=== PATIENT | female | born 1940 | race Caucasian/White ===

== ENCOUNTER 2024-10-21 15:30 | Inpatient (IN) ==
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
--- OUTSIDE RECORDS SUMMARY | 2024-10-21 15:35 | External Medical Summary | Summary of Care ---
Author Name Unknown Organization [facility] Address [address] [place] [address] Phone [phone] Care Team Providers Care Naval Aircrewman Operator Name Role Phone Adeola Kong DO Primary Care Provider [phone] Reason for Referral * Precert (Within 10 days (routine)) - Closed Specialty Diagnoses / Procedures Referred By Contac t Referred To Contact Radiology Diagnoses Multiple lung nodules on CT Procedures CT CHEST WO CONTRAST Carol Martinez CRNP Phone: tel: fax: Referral ID Status Reason Start Date Expiration Date V isits Requested Visits Authorized [id number] Closed Precert 04/05/2023 06/05/2023 999 999 Reason for Visit * Reason Onset Date Comments STAIR Lung Nodule 01/26/2023 Lung Nodule Pr ogram Encounter Details Date Type Department Care Team (Late st Contact Info) Description 01/26/2023 Telephone STAIR LUNG NODULE [address] [place] [address] Program, Stair [address] [place] [address] STAIR Lung Nodule (Lung Nodule Program) Allergies No known active allergiesdocumented as of this encounter (statuses as of 09/14/2024) Medications PreserVision AREDS 2+Multi Vit Oral Capsule Take by mouth . Active Lysine 500 MG Oral Capsule Take by mouth . Active Vitamin B-12 250 MCG Oral Tablet (Cyanocobalami n) Take 1 Tablet by mouth in the morning. Active Calcium 1000 + D 1000-20 MG-MCG Oral Tablet (Calcium Carb-Cholecalc iferol) Take by mouth . Active Pantoprazole Sodium 40 MG Oral Packet (Protonix)Collette cations:Gastro esophageal reflux disease without esophagitis Administer 40 mg into feeding tube in the morning. 90 Each 3 07/28/19 23 024 Discontinued Simvastatin 40 MG Oral Tablet (Zocor)Indicat ions:Dyslipide vickie Take 1 Tablet by mouth every evening. 90 Tablet 3 07/28/19 23 024 Discontinued(Re fill) documented as of this encounter (statuses as of 09/14/2024) Active Problems Problem Noted Date Diagnosed Date [...] as of this encounter (statuses as of 09/14/2024) Immunizations Name Administration Dates Next Due COVID-19 mRNA, LNP-s, No Pre serve, 2-Dose Series (EarlySense) 09/25/2021,04/07/2021,08/17/2020,2020 COVID-19, MRNA-LNP, PF, 50 M CG/0.5 mL, 12 YRS AND ABOVE, IM (MODERNA-Spikevax) 04/07/2023 Covid-19, Mrna, Lnp-s, Pf, B ivalent, 30 Mcg, IM, 12 yrs and above (EarlySense) 03/04/2022 Pneumococcal Conjugate Vacci ne, 20-valent ([id number]) 07/24/2024 Pneumococcal Conjugate Vacci ne, 7 Valent [...] Packs/Day Years Used Date Smoking Tobacco: Never Smokeless Tobacco: Never Alcohol Use Standard Drinks/Week [...] 01/29/2023 Does the household have a re lar source of income? (Household - for ages [...] Start Date Job End Date retired from [employer] Not on file Not on file Not on olesya e documented as of this encounter Miscellaneous Notes * Telephone Encounter - Deb Veloz LPN - 09/14/2024 2:02 PM EDT Patient disenrolled from STAIR Program for Pulmonary Nodule - banner removed * Telephone Encounter - Cielo Crystal LPN - 02/11/2023 7:45 AM EDT Cresencio Black DO - for your review. An important pulmonary nodule finding was noted. The follow-up Care Plan is [address] Chest scan. The STAIR Team will manage this lung nodule and take care of any ordering/scheduling. Lung Nodule Referral Triaging - Communication to Patient Patient letter sent through [facility] or mail. Patient will be contacted again closer to follow-up date to schedule CT scan. 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 Non-Pulmonary Nodule Incidental Finding: hiatal hernia 3. Patient contacted to review recommendations and next steps: No, letter to be sent by STAIR Coordinator (CT in >=12 months, no follow-up needed, or patient sent back to [facility]) 4. Message forwarded to STAIR Pool. Time spent: 20 minutes CRUZ Larsen (System to Track Abnormalities of Importance Reliably)™ * Telephone Encounter - Cielo Crystal LPN - 01/26/2023 8:54 AM EDT Lung Nodule Referral Triaging - Clinical Summary Name: Arlene Brock Age: [age] year old Patient Identified by: Specialty Referral Questions: 1. Have you ever smoked Cigarettes? no - never smoked 2. Have you ever had Cancer? Yes, Site: Skin 3. Do you have any first degree relatives (parent, sibling or child) who have or had lung cancer? No 4. Have you ever had any Chest X-Rays done outside of [facility] in the past 5 years? Yes; Where: [facility]; When: 5. Have you ever had any CAT scans of your chest, abdomen or spine done outside of [facility] in thepast 5 years? Yes; Where: [facility]; When: 6. New patient to this specialty Next Steps: Assembly: CXR/Chest CT/Abdomen CT/Spine CT outside of [facility]: outside CXR/CT scan disk requested Ordering: Recent CT Chest (within 12 months): Ordered Message will be forwarded to CLASSIFIED AD CLERK Nodule Pool when necessary imaging is available for review. Cielo Crystal LPN Coordinator STAIR (System to Track Abnormalities of Importance Reliably)™ Patient managed in STAIR Program for Pulmonary Nodule - banner added * Telephone Encounter - Deb Veloz LPN - 01/26/2023 8:40 AM EDT Left message for return call to enroll in STAIR documented in this encounter Plan of Treatment Upcoming Encounters Date Type Department Care Team (Late st Contact Info) Description 01/22/2025 9:40 AM EDT Office Visit [facility] [address] [place] [address] Adeola Kong, [address] [place] [address] 02/15/2025 8:15 AM EDT Office Visit Dermatology [facility] [address] [facility] [place] [address] Kamlesh Myers MD [address] [facility] [place] [address] Health Maintenance Due Date Last Done Comments [...] on patient's age to complete this topic Meningitis B Vaccine (Bexsero/Trumemba) Aged Out No longer eligible based on patient's age to complete this topic Zoster Vaccines Discontinued documented as of this encounter Medical Devices Not on filedocumented as of this encounter Results * CT CHEST WO CONTRAST (04/26/2023 10:35 AM EST) Anatomical Region Laterality Modality Chest, Body, Cardio Computed Jakub ography 04/27/2023 5:57 PM EST Impressions 04/27/2023 5:54 PM EST IMPRESSION Stable size and burden of sub 6 mm solid appearing nodules. Recommend a follow-up in 1 year to document stability. Narrative 04/27/2023 5:54 PM EST EXAM EXAM: CT CHEST WO CONTRAST DATE and TIME: 04/26/2023 10:35 am HISTORY CLINICAL INFORMATION: STAIR - lung nodules TECHNIQUE Oral Contrast: Oral contrast was not administered. IV Contrast: No IV contrast used COMPARISON CT chest 01/21/2023 FINDINGS LUNGS/PLEURA: The central tracheobronchial tree is patent. There are unchanged sub 6 mm solid appearing nodules with customer counter representative 6 mm solid appearing left lower lobe nodule axial 137 of 290. Overall burden of nodules unchanged. There are scattered ground-glass opacities. There is no sizable effusion or pneumothorax. CARDIOVASCULAR, MEDIASTINUM, THYROID: Normal size heart. Coronary artery calcifications. Unremarkable thyroid gland. Unremarkable esophagus. Small hiatal hernia. LYMPH NODES: Unremarkable SKELETON,CHEST WALL: Multilevel degenerative changes of the spine. Exaggerated kyphosis. Multilevel Schmorl's nodes. UPPER ABDOMEN: Collapsed stomach. Left hepatic lobe cyst. No acute abnormality in the upper abdomen. Limited evaluation of the pancreas due to incomplete field of view. Procedure Note Errol Andujar DO - 04/27/2023 EXAM EXAM: CT CHEST WO CONTRAST DATE and TIME: 04/26/2023 10:35 am HISTORY CLINICAL INFORMATION: STAIR - lung nodules TECHNIQUE Oral Contrast: Oral contrast was not administered. IV Contrast: No IV contrast used COMPARISON CT chest 01/21/2023 FINDINGS LUNGS/PLEURA: The central tracheobronchial tree is patent. There areunchanged sub 6 mm solid appearing nodules with customer counter representative 6 mm solidappearing left lower lobe nodule axial 137 of 290. Overall burden ofnodules unchanged. There are scattered ground-glass opacities. There isno sizable effusion or pneumothorax. CARDIOVASCULAR, MEDIASTINUM, THYROID: Normal size heart. Coronary arterycalcifications. Unremarkable thyroid gland. Unremarkable esophagus.Small hiatal hernia. LYMPH NODES: Unremarkable SKELETON,CHEST WALL: Multilevel degenerative changes of the spine.Exaggerated kyphosis. Multilevel Schmorl's nodes. UPPER ABDOMEN: Collapsed stomach. Left hepatic lobe cyst. No acuteabnormality in the upper abdomen. Limited evaluation of the pancreas dueto incomplete field of view. IMPRESSION IMPRESSION Stable size and burden of sub 6 mm solid appearing nodules. Recommend afollow-up in 1 year to document stability. us Carol Martinez PATCHER WOOD WELDER RAD CT Final Result documented in this encounter Visit Diagnoses Diagnosis Multiple lung nodules on CT- Primary Multiple lung nodules on CT documented in this encounter Care Teams Naval Aircrewman Operator Relationship Specialty Start Date End Date Adeola Kong DO [address] [facility] [place] [address] PCP - General Family Medicine 05/04/23 documented as of this encounter
--- OUTSIDE RECORDS SUMMARY | 2024-10-21 15:35 | External Medical Summary | Summary of Care ---
Author Name Unknown Organization [facility] Address [address] [facility] [place] [address] Phone [phone] Care Team Providers Care Energy Auditor Name Role Phone Adeola Kong DO Primary Care Provider [phone] Reason for Visit * Reason Onset Date Comments Test Results Biopsy 04/10/2024 Encounter Details Date Type Department Care Team (Late st Contact Info) Description 04/10/2024 Telephone Dermatology [facility] [place] [address] [place] [address] Miguelina España PA-C [address] [place] [address] Test Results Biopsy Allergies No known active allergiesdocumented as of this encounter (statuses as of 07/10/2024) Medications PreserVision AREDS 2+Multi Vit Oral Capsule Take by mouth . Acti ve Lysine 500 MG Oral Capsule Take by mouth . A ctive Vitamin B-12 250 MCG Oral Tablet (Cyanocobalamin ) Take 1 Tablet by mouth in the morning. Active Calcium 1000 + D 1000-20 MG-MCG Oral Tablet (Calcium Carb-Cholecalci ferol) Take by mouth . Acti ve Triamcinolone Acetonide 0.1 % External Cream (Aristocort)Ind ications:Prurit us Apply to itchy skin on back, abdomen, arms, and legs once twice daily for 2 weeks. Apply to forehead once daily for 10 days 450 g 1 4 Active Simvastatin 40 MG Oral Tablet (Zocor)Indicati ons:Dyslipidemi a Take 1 Tablet by mouth every evening. 90 Tablet 3 4 Active Pantoprazole Sodium 40 MG Oral Tablet Delayed Release (Protonix) Take 1 Tablet by mouth in the morning. 90 Tablet 3 4 Active Gabapentin 100 MG Oral Capsule (Neurontin)Collette cations:Neuropa thy of right foot Take 1 Capsule by mouth in the morning and 1 Capsule at noon and 1 Capsule before bedtime. 270 Capsule 3 4 Active predniSONE 20 MG Oral Tablet (Deltasone)Collette cations:Inflamm ation of sacroiliac joint (HCC),Arthritis of low back Take 3 tabs for 3 days, 2 tabs for 3 days, 1 tab for 3 days, 1/2 tab for 3 days 20 Tablet 4 Active Additional Information Patient not taking.Reported on 03/30/2024 documented as of this encounter (statuses as of 07/10/2024) Active Problems Problem Noted Date Diagnosed Date [...] as of this encounter (statuses as of 07/10/2024) Immunizations Name Administration Dates Next Due COVID-19 mRNA, LNP-s, No Pre serve, 2-Dose Series (Fastmobile) 09/25/2021,04/07/2021,08/17/2020,2020 Covid-19, Mrna, Lnp-s, Pf, B ivalent, 30 Mcg, IM, 12 yrs and above (Fastmobile) 03/04/2022 RSV Vac., Recomb, Adjuvant, PF,0.5 Ml (Arexvy) 05/06/2023 Seasonal Influenza Virus Vac cine, Unspecified Formulation 03/04/2022 Seasonal Influenza, PF, 6 M & above, IM , (FluLaval or Fluzone) 03/04/2022 Seasonal Influenza, Quadriva lent Hd (Fluzone Hd) 04/07/2023 TDAP (age 10 and older)(Boostrix) 05/06/2023 documented [...] y our heating, water, or electric bill? (Adult - for ages 18 years and over) Not on file 02/11/2024 Is your family able to pay t he heat, water, or electric bill? (Household - for ages 0-17 years) Not on file 02/11/2024 Does your family have access to good internet? (Household - for ages 0-17 years) Not on file 02/11/2024 Employment Status Answer Date Recorded Are you unemployed or without regular income? No 01/29/2023 Does the household have a re gular source of income? (Household - for ages 0-17 years) Not on file 01/29/2023 Social Connections Answer Date Recorded How often do you feel lonely or isolated from those around you? (Adult - for ages 18 years and over) Not on file 02/11/2024 Financial Resource Strain Answer Date R ecorded [...] Start Date Job End Date retired from [employer] Not on file Not on file Not on olesya e documented as of this encounter Miscellaneous Notes * Telephone Encounter - Mireille Torres LPN - 04/10/2024 10:45 AM EDT Patient aware of results. Says it's still a little tender but using the vaseline and bandage. Will call with any concerns. * Telephone Encounter - Stefani Ryan LPN - 04/10/2024 7:59 AM EDT LVM for Arlene to call our office back. If she calls back please relay the message below. * Telephone Encounter - Fidelina Jones CMA - 04/10/2024 7:18 AM EDT Images from the original note were not included. 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 We do not need to do anything more right now. documented in this encounter Plan of Treatment Upcoming Encounters Date Type Department Care Team (Late st Contact Info) Description 07/24/2024 11:40 AM EST Office Visit [facility] [address] [place] [address] Beth Wells CRNP [address] [place] [id number] 01/04/2025 9:15 AM EDT Office Visit Dermatology [facility] [address] [facility] [place] [address] Kamlesh Myers MD [address] [facility] [place] [address] Health Maintenance Due Date Last Done Comments Pneumococcal Vaccine: 50+ Years (1 of 1 - PCV) 1988 Zoster Vaccines (1 of 2) 1988 Adult Wellness Visit 2004 Depression Monitoring 04/23/2023 04/23/2022 COVID-19 Vaccine ( season) 2024 04/07/2023, 03/04/2022, 09/25/2021, Additional history exists Influenza Vaccine (FLU shot) (#1) 2024 04/07/2023, 03/04/2022, 03/04/2022, Additional history exists DXA Scan 06/02/2032 06/02/2022, 06/02/2022 DTap/Tdap Vaccines (2 - Td or Tdap) 05/06/2033 05/06/2023 HPV (Gardasil) Vaccine Aged Out No lo nger eligible based on patient's age to complete this topic Hepatitis B Vaccine Aged Out No longe r eligible based on patient's age to complete this topic MENINGOCOCCAL (MENACTRA/MENVEO) Aged Out No longer eligible based on patient's age to complete this topic documented as of this encounter Medical Devices Not on filedocumented as of this encounter Care Teams Energy Auditor Relationship Specialty Start Date End Date Adeola Kong DO [address] [place] [address] PCP - General Family Medicine 05/04/23 documented as of this encounter
--- OUTSIDE RECORDS SUMMARY | 2024-10-21 15:35 | External Medical Summary | Summary of Care ---
Author Name Unknown Organization [facility] Address [address] [facility] [place] [address] Phone [phone] Care Team Providers Care Proposal Rep Name Role Phone Adeola Kong DO Primary Care Provider [phone] Reason for Visit * Reason Onset Date Comments Appointment Canceled 07/25/2024 Encounter Details Date Type Department Care Team (Late st Contact Info) Description 07/25/2024 Telephone Podiatry [facility] [address] [place] [address] Stacy Winn, DPM [address] [place] [address] Appointment Canceled Allergies No known active allergiesdocumented as of this encounter (statuses as of 07/25/2024) Medications PreserVision AREDS 2+Multi Vit Oral Capsule Take by mouth . Active Lysine 500 MG Oral Capsule Take by mouth . Active Vitamin B-12 250 MCG Oral Tablet (Cyanocobalamin ) Take 1 Tablet by mouth in the morning. Active Calcium 1000 + D 1000-20 MG-MCG Oral Tablet (Calcium Carb-Cholecalci ferol) Take by mouth . Active Triamcinolone Acetonide 0.1 % External Cream (Aristocort)Ind ications:Prurit us Apply to itchy skin on back, abdomen, arms, and legs once twice daily for 2 weeks. Apply to forehead once daily for 10 days 450 g 1 07/02/2023 Active Simvastatin 40 MG Oral Tablet (Zocor)Indicati ons:Dyslipidemi a Take 1 Tablet by mouth every evening. 90 Tablet 3 10/08/2023 Active Pantoprazole Sodium 40 MG Oral Tablet Delayed Release (Protonix) Take 1 Tablet by mouth in the morning. 90 Tablet 3 11/11/2023 Active Gabapentin 100 MG Oral Capsule (Neurontin)Collette cations:Neuropa thy of right foot Take 1 Capsule by mouth at bedtime as needed (neuropathy in feet). 270 Capsule 3 07/24/2024 Active documented as of this encounter (statuses as [...] mRNA, LNP-s, No Pre serve, 2-Dose Series ([email or web address]) 09/25/2021,04/07/2021,08/17/2020,2020 COVID-19, MRNA-LNP, PF, 50 M CG/0.5 mL, 12 YRS AND ABOVE, IM (MODERNA-Spikevax) 04/07/2023 Covid-19, Mrna, Lnp-s, Pf, B ivalent, 30 Mcg, IM, 12 yrs and above (Pfizer) 03/04/2022 Pneumococcal Conjugate Vacci ne, 20-valent ([id number]) 07/24/2024 Pneumococcal Conjugate Vacci ne, 7 Valent [...] Start Date Job End Date retired from [employer] Not on file Not on file Not on olesya e documented as of this encounter Miscellaneous Notes * Telephone Encounter - Kendra Davidson OSA - 07/25/2024 11:17 AM EST Per message below - attempted to reach patient GERARDO LVM for patient that 07/28 appt cancelled Sent list of routine nail care providers to patients address in file * Telephone Encounter - Kendra Davidson OSA - 07/25/2024 11:16 AM EST ----- Message from Stacy Winn DPM sent at 07/24/2024 11:56 AM EST ----- New patient got scheduled for this Wednesday at 3:20. Reason is corn. Could we provide list? Based on referral this would likely not be covered anyway but is considered routine. Thanks! documented in this encounter Plan of Treatment Upcoming Encounters Date Type Department Care Team (Late st Contact Info) Description 01/22/2025 9:40 AM EDT Office Visit Family Practice [facility] [address] [place] [address] Adeola Kong DO [address] [place] [address] 02/15/2025 8:15 AM EDT Office Visit Dermatology [facility] [address] [facility] [place] [address] Kamlesh Myers MD [address] [facility] [place] [address] Health Maintenance Due Date Last Done Comments [...] filedocumented as of this encounter Care Teams Proposal Rep Relationship Specialty Start Date End Date Adeola Kong DO [address] [place] [address] PCP - General Family Medicine 05/04/23 documented as of this encounter
--- OUTSIDE RECORDS SUMMARY | 2024-10-21 15:35 | External Medical Summary | Summary of Care ---
Author Name Unknown Organization [facility] Address [address] [facility] [place] [address] Phone [phone] Care Team Providers Care Top Inventory Control Executive Name Role Phone Adeola Kong DO Primary Care Provider [phone] Reason for Visit * Reason Onset Date Comments Advice 03/17/2024 Encounter Details Date Type Department Care Team (Late st Contact Info) Description 03/17/2024 Telephone Family Practice [facility] [address] [place] [address] Adeola Kong DO [address] [place] [address] Advice Allergies No known active allergiesdocumented as of this encounter (statuses as of 06/16/2024) Medications PreserVision AREDS 2+Multi Vit Oral Capsule [...] as of this encounter (statuses as of 06/16/2024) Active Problems Problem Noted Date Diagnosed Date [...] as of this encounter (statuses as of 06/16/2024) Immunizations Name Administration Dates Next Due COVID-19 mRNA, LNP-s, No Pre serve, 2-Dose Series (Social Reality) 09/25/2021,04/07/2021,08/17/2020,2020 Covid-19, Mrna, Lnp-s, Pf, B ivalent, 30 Mcg, IM, 12 yrs and above (Social Reality) 03/04/2022 RSV Vac., Recomb, Adjuvant, PF,0.5 Ml [...] Start Date Job End Date retired from [employer] Not on file Not on file Not on olesya e documented as of this encounter Miscellaneous Notes * Telephone Encounter - Jack Zuñiga OSA - 03/17/2024 10:48 AM EDT Patient has a growth under her left arm and would like to know if she needs to be seen by PCP. Please follow up and call her back. Thank you. documented in this encounter Plan of Treatment Upcoming Encounters Date Type Department Care Team (Late st Contact Info) Description 07/24/2024 11:40 AM EST Office Visit Family Practice [facility] [address] [place] [address] Adeola Kong DO [address] [place] [address] 01/04/2025 9:15 AM EDT Office Visit Dermatology [facility] [place] [address] [place] [address] Kamlesh Myers MD [address] [place] [address] Health Maintenance Due Date Last Done Comments [...] filedocumented as of this encounter Care Teams Top Inventory Control Executive Relationship Specialty Start Date End Date Adeola Kong DO [address] [place] [address] PCP - General Family Medicine 05/04/23 documented as of this encounter
--- OUTSIDE RECORDS SUMMARY | 2024-10-21 15:35 | External Medical Summary | Summary of Care ---
Author Name Unknown Organization [facility] Address [address] [facility] [place] [address] Phone [phone] Care Team Providers Care Critical Power Technician Name Role Phone Clyde Garces DO Primary Care Provider [phone] Reason for Visit * Reason Comments eRx-Medication Refill Encounter Details Date Type Department Care Team (Late st Contact Info) Description 10/04/2024 [address]ill [address] [facility] [address] [place] [address] Clyde Garces DO [address] [place] [address] Dyslipidemia Allergies No known active allergiesdocumented as of this encounter (statuses as of 10/05/2024) Medications PreserVision AREDS 2+Multi Vit Oral Capsule [...] 10 days 450 g 1 4 Active Pantoprazole Sodium 40 MG Oral Tablet Delayed Release (Protonix) Take 1 Tablet by mouth in the morning. 90 Tablet 3 4 Active Gabapentin 100 MG Oral Capsule (Neurontin)Ind ications:Neuro vincent of right foot Take 1 Capsule by mouth at bedtime as needed (neuropathy in feet). 270 Capsule 3 5 Active Simvastatin 40 MG Oral Tablet (Zocor)Indicat ions:Dyslipide vickie TAKE 1 TABLET BY MOUTH ONCE DAILY IN THE EVENING 90 Tablet 3 5 Active Simvastatin 40 MG Oral Tablet (Zocor)Indicat ions:Dyslipide vickie Take 1 Tablet by mouth every evening. 90 Tablet 3 4 025 Discontinued documented as of this encounter (statuses as of 10/05/2024) Active Problems Problem Noted Date Diagnosed Date [...] as of this encounter (statuses as of 10/05/2024) Immunizations Name Administration Dates Next Due COVID-19 mRNA, LNP-s, No Pre serve, 2-Dose Series ([employer]) 09/25/2021,04/07/2021,08/17/2020,2020 COVID-19, MRNA-LNP, PF, 50 M CG/0.5 mL, 12 YRS AND ABOVE, IM (MODERNA-Spikevax) 04/07/2023 Covid-19, Mrna, Lnp-s, Pf, B ivalent, 30 Mcg, IM, 12 yrs and above (Pfizer) 03/04/2022 Pneumococcal Conjugate Vacci ne, 20-valent ([id number]) 07/24/2024 Pneumococcal Conjugate Vacci ne, 7 Valent [...] 18 years and over) Not on file 3 Are you (or your family) beny eless [...] Start Date Job End Date retired from [employer] Not on file Not on file Not on olesya e documented as of this encounter Miscellaneous Notes * Telephone Encounter - Claribel Green [facility] - 10/04/2024 5:57 PM EDTSigned Prescriptions: Disp Refills Simvastatin 40 MG Oral Tablet (Zocor) 90 Tab*3 Sig: TAKE 1 TABLET BY MOUTH ONCE DAILY IN THE EVENINGAuthorizing Provider: CLYDE GARCES User: CLARIBEL GREEN documented in this encounter Plan of Treatment Upcoming Encounters Date Type Department Care Team (Late st Contact Info) Description 01/22/2025 9:40 AM EDT Office Visit Family Practice [address] [place] [address] Clyde Garces DO [address] [place] [address] 02/15/2025 8:15 AM EDT Office Visit Dermatology [employer] [address] [facility] [place] [address] Kamlesh Myers MD [address] [facility] [place] [address] Health Maintenance Due Date Last Done Comments Depression Monitoring 1950 Adult Wellness Visit 2004 COVID-19 Vaccine ( season) 2024 04/07/2023, 03/04/2022, 09/25/2021, Additional history exists Influenza Vaccine (FLU shot) (Season Ended) 2025 04/07/2023, 03/04/2022, 03/04/2022, Additional history exists DXA [...] as of this encounter Visit Diagnoses Diagnosis Dyslipidemia Other and unspecified hyperlipidemia documented in this encounter Care Teams Critical Power Technician Relationship Specialty Start Date End Date Clyde Garces DO [address] [place] [address] PCP - General Family Medicine 05/04/23 documented as of this encounter
--- OUTSIDE RECORDS SUMMARY | 2024-10-21 15:35 | External Medical Summary | Summary of Care ---
Author Name Unknown Organization [facility] Address [address] [place] [address] Phone [phone] Care Team Providers Care Executive Coach Name Role Phone Adeola López DO Primary Care Provider [phone] Reason for Visit * Reason Onset Date Comments Test Results 05/23/2024 Encounter Details Date Type Department Care Team (Late st Contact Info) Description 05/23/2024 Telephone Family Practice [facility] [address] [place] [address] Adeola López DO [address] [place] [address] Test Results Allergies No known active allergiesdocumented as of this encounter (statuses as of 05/26/2024) Medications PreserVision AREDS 2+Multi Vit Oral Capsule [...] as of this encounter (statuses as of 05/26/2024) Active Problems Problem Noted Date Diagnosed Date [...] as of this encounter (statuses as of 05/26/2024) Immunizations Name Administration Dates Next Due COVID-19 mRNA, LNP-s, No Pre serve, 2-Dose Series ([employer]) 09/25/2021,04/07/2021,08/17/2020,2020 Covid-19, Mrna, Lnp-s, Pf, B ivalent, 30 Mcg, IM, 12 yrs and above ([employer]) 03/04/2022 RSV Vac., Recomb, Adjuvant, PF,0.5 Ml [...] 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 Small lung nodules are stable x1.5-2 years. Generally these nodules aren't followed more than 12 months in someone that is high risk, per guidelines. * Telephone Encounter - Deb Veloz LPN - 05/25/2024 10:33 AM EST Spoke with patient made aware of below. She is still concerned they may still grow. Concerned aboutdown the road. She is asking for a call back. * Telephone Encounter - Carol Martinez CRNP - 05/24/2024 4:36 PM EST Stable lung nodules. No further follow-up warranted per guidelines. * Telephone Encounter - Eda Henson LPN - 05/24/2024 2:11 PM EST STAIR pt, requesting results. * Telephone Encounter - Adia Bey CRNP - 05/24/2024 12:37 PM EST Inbox coverage Not ordered by clint. It was ordered by lung nodule team [place], MSN, CR[facility] * Telephone Encounter - Debbie Rodriguez OSA - 05/23/2024 3:39 PM EST Who is Requesting Test Results: Patient Primary Care Provider : Adeola López DO Tests Results Requested : CT scan Date of Test : 05/02 Location of Test: [facility] Ordering Provider: Dr. López Patient has been made aware that the turnaround time for test results are typically as follows: Laboratory results = within 2-3 days ([facility]), 3-5 days (Non-[facility], ie. [facility]) Urine Cultures = within 2-3 days depending on growth within the culture Pathology results (biopsy results/PAP) = 1-2 weeks Radiology results = about 1 week Cologuard results = within 2 weeks from the shipment date COVID testing = about 24 hours documented in this encounter Plan of Treatment Upcoming Encounters Date Type Department Care Team (Late st Contact Info) Description 07/24/2024 11:40 AM EST Office Visit Family Practice [facility] [address] [place] [address] Adeola López DO [address] [place] [address] 01/04/2025 9:15 AM EDT Office Visit Dermatology [facility] [address] [facility] [place] [address] Kamlehs Jolley MD [address] [facility] [place] [address] Health Maintenance Due Date Last Done Comments Zoster Vaccines (1 of 2) 1988 Pneumococcal Vaccine: 65+ Years (1 of 1 - PCV) 2003 Adult Wellness Visit 2004 Depression Monitoring 04/23/2023 [...] filedocumented as of this encounter Care Teams Executive Coach Relationship Specialty Start Date End Date Adeola López DO [address] [place] [address] PCP - General Family Medicine 05/04/23 documented as of this encounter
--- OUTSIDE RECORDS SUMMARY | 2024-10-21 15:35 | External Medical Summary | Summary of Care ---
Author Name Unknown Organization [facility] Address [address] [facility] [place] [address] Phone [phone] Care Team Providers Care Marketing Editor Name Role Phone Adeola Kong DO Primary Care Provider [phone] Encounter Details Date Type Department Care Team (Late st Contact Info) Description 07/13/2024 Population Health External Data Unspecified Department Allergies No known active allergiesdocumented as of this encounter (statuses as of 07/13/2024) Medications PreserVision AREDS 2+Multi Vit Oral Capsule [...] as of this encounter (statuses as of 07/13/2024) Active Problems Problem Noted Date Diagnosed Date [...] as of this encounter (statuses as of 07/13/2024) Immunizations Name Administration Dates Next Due COVID-19 mRNA, LNP-s, No Pre serve, 2-Dose Series ([employer]) 09/25/2021,04/07/2021,08/17/2020,2020 Covid-19, Mrna, Lnp-s, Pf, B ivalent, 30 Mcg, IM, 12 yrs and above ([employer]) 03/04/2022 RSV Vac., Recomb, Adjuvant, PF,0.5 Ml [...] Start Date Job End Date retired from [employer] Not on file Not on file Not on olesya e documented as of this encounter Plan of Treatment Upcoming Encounters Date Type Department Care Team (Late st Contact Info) Description 07/24/2024 11:40 AM EST Office Visit Family Practice [facility] [address] [place] [address] Beth Wells CRNP [address] [place] [address] 01/04/2025 9:15 AM EDT Office Visit Dermatology [facility] [address] [place] [address] Kamlesh Myers MD [address] [place] [address] Health Maintenance Due Date Last Done Comments [...] filedocumented as of this encounter Care Teams Marketing Editor Relationship Specialty Start Date End Date Adeola Kong DO [address] [place] [address] PCP - General Family Medicine 05/04/23 documented as of this encounter
--- NOTE | 2024-10-21 15:54 | Emergency Department Note ---
Impression & Plan Status post fall, CHI (closed head injury), Acute dehydration, Postural hypotension ED Provider Note NAME: MAHENDRA HUYNH AGE: 84 SEX: F : 1940 ARRIVES VIA: Ambulance INFORMANT: Patient, EMS report ED PROVIDER(S): Mckinley Maki MD CHIEF COMPLAINT: Trauma, fall, hip pain, headache MEDICAL DECISION MAKING: Patient presents with the above. IV was established and blood work is obtained. Patient's blood work showed a normal white count with a hemoglobin of 14. Patient's platelet count is unremarkable. Kidney function unremarkable. LFTs are unremarkable. The patient CTs were unremarkable. CT head negative CT abdomen and pelvis negative CT of the chest was negative. Patient's femur x-ray also negative. CT cervical spine showed some degenerative changes. Patient was still complaining of some pains the patient was ordered fentanyl IV 25 mcg. About half hour 45 minutes later the patient was attempted to be sat up and was very lightheaded and dizzy. Patient was having postural changes and blood pressure was of the patient was ordered IV fluids. After liter the patient was attempted to ambulate again but still had symptoms. Further discussion was had with the son. I did consider escalation of care and offered admission. He is amenable to trying another liter of IV fluids. This was ordered. Patient was up and ambulatory to and from the bathroom and was feeling improved but still was having some concern about going home at this time. Given this I did speak with the on-call hospitalist service Dr. Jackson and the patient was admitted to the medicine service. Patient is DNR/DNI. Discussion w/ other healthcare providers: Dr. Jackson inpatient medicine service Prior /Outside records reviewed: None Differential diagnosis: Fracture, dislocation, contusion, strain, sprain, ICH, hemothorax, intra- abdominal injury, anemia among other causes were considered. Diagnostics, as interpreted by me: ECG: None Cardiac monitoring: An order was placed for continuous cardiac monitoring. The monitor shows a rate of 85 with sinus rhythm. Patient was placed on pulse oximetry Medical decision rules: Malaysian head CT rule Imaging studies: I informally interpreted the patient's chest x-ray without obvious pneumonia or pneumothorax with formal report to follow. HPI: Patient presents due to concern for a fall that occurred around 11 AM today. The patient states that she was walking back down a set of stairs carrying a bag which she has been doing for the last 2 years that is the only way that she can apparently carry at this and had a fall down 8 steps. The patient did strike her head no LOC does not take a blood thinner medications. The patient states that she also has some associated right-sided hip pain. Patient denies any neck pain. She denies any obvious back or chest pain. Patient's tetanus is not up-to-date. The patient reports that she likely did have a tear to the right forearm. Irrigation skin wound PAST MEDICAL HISTORY: See Below PAST SURGICAL HISTORY: See Below SOCIAL HISTORY: See Below HOME MEDICATIONS: See Below ALLERGIES: See Below VITALS: See Below PHYSICAL EXAMINATION: Primary Survey Airway: Intact Breathing: Normal, breath sounds equal bilaterally Circulation: Skin warm, distal pulses present, capillary refill less than 2 seconds Disability Pupils: Equal and reactive to light, 3mm, brisk GCS: 15, E = 4 V=5 M= 6 Motor Function: Moves all extremities. Sensory: No deficits Secondary Survey GENERAL: NAD, non-toxic. HEAD: Right-sided parietal head pain with contusion no obvious laceration. EYE EXAM: Normal conjunctiva. PERRL, no anisocoria and EOM's grossly intact w/o pain. OROPHARYNX: Moist mucus membranes. Grossly normal dentition. NECK: Supple, trachea midline, no midline C spine TTP. Chest: No anterior chest wall pain. Mild pain to the bilateral posterior lower ribs. No obvious step-offs. LUNGS: Clear to auscultation. Normal chest wall mechanics. HEART: NSR, no MRG. ABDOMEN: Abdomen soft, non-tender, no obvious bruising, normo-active bowel sounds, no masses, no rebound or guarding. BACK: No CVA TTP. No midline thoracic or lumbar TTP. SKIN: No rashes and no bruising. UPPER EXTREMITIES: No obvious deformity. Skin tear noted to the right forearm. Well-perfused and compartments are soft throughout LOWER EXTREMITIES: Pain to palpation to the right hip. Slight decreased range of motion secondary to pain but able to raise it up off the bed. Well-perfused and compartments are soft throughout. NEURO EXAM: A&O x3, cranial nerves II-XII grossly intact, normal speech, moves all 4 extremities. Past Med/Surg History Problem List (Updated 10/22/24 @ 21:33 by Mckinley Maki MD) Postural hypotension (Acute) Acute dehydration (Acute) CHI (closed head injury) (Acute) Status post fall (Acute) Hypotension Social History Smoking Status: Never smoker Hx Alcohol Use: No Hx Substance Use: No Preferred Language: Kazakh Statistics Teacher Required: No Beliefs That Will Affect Care: None Current Living Situation: Family Current Living Situation Comment: with son and [id number] Other Information That Helps Us Care for You: No Feels Safe at Home: Yes Safety Concerns: Feels Safe At This Time Assistive Devices: Cane, Glasses, Hearing Aid - Bilateral and Other Assistive Devices Comment: many various visual aids Allergies Allergies Allergy/AdvReac Type Severity Reaction Status Date / Time No Known Allergies Allergy Unverified 10/21/24 18:43 Home Meds Home Medications Medication Instructions Recorded Confirmed calcium 600 mg (as 1 tab PO DAILY 02/25/22 10/21/24 carbonate)-vitamin D3 5 mcg (200 unit) tablet (Calcium 600 + D(3)) lysine HCl 1,000 mg tablet 1,000 mg PO Q2D 02/25/22 10/21/24 multivitamin with minerals 1 tab PO DAILY 02/25/22 10/21/24 (Hair,Skin and Nails tablet) pantoprazole 40 mg tablet,delayed 40 mg PO QAM 02/25/22 10/21/24 release simvastatin 40 mg tablet 40 mg PO QPM 02/25/22 10/21/24 vit C 250 mg-vit E 90 mg-zinc 40 1 tab PO BID 02/25/22 10/21/24 mg-copper 1 [id number] capsule (PreserVision AREDS-2) gabapentin 100 mg capsule 100 mg PO HS PRN Pain/Sleep 10/21/24 10/21/24 Results & Data (ED) Vital Signs Vital Signs - 24 hr 10/21/24 22:00 10/21/24 23:00 10/22/24 00:00 Temperature Temperature Source Pulse Rate Pulse Rate [Apical] 84 81 75 Pulse Rate [Finger] Pulse Rhythm [Apical] Pulse Strength [Apical] Respiratory Rate 20 20 20 Respiratory Effort / Characteristics Respiratory Depth Respiratory Pattern Blood Pressure [Right Arm] 115/60 123/71 93/54 L Blood Pressure Mean [Right Arm] 78 88 67 Blood Pressure Position [Right Arm] Lying Lying Pulse Oximetry 98 97 97 Oxygen Delivery Method Room Air Room Air Room Air EWS Level of Consciousness - Last Result EWS Temperature - Last Result EWS Respiratory Rate - Last Result EWS Oxygen Saturation - Last Result EWS Oxygen in Use - Last Result EWS Score EWS Clinical Risk 10/22/24 01:00 10/22/24 01:59 10/22/24 01:59 Temperature 36.7 C Temperature Source Oral Pulse Rate Pulse Rate [Apical] 78 71 Pulse Rate [Finger] Pulse Rhythm [Apical] Regular Pulse Strength [Apical] Normal Respiratory Rate 20 16 Respiratory Effort / Characteristics Non-Labored Spontaneous Non-Labored Spontaneous Respiratory Depth Normal Normal Respiratory Pattern Regular Regular Blood Pressure [Right Arm] 99/52 L 110/64 Blood Pressure Mean [Right Arm] 67 79 Blood Pressure Position [Right Arm] Lying Pulse Oximetry 97 100 Oxygen Delivery Method Room Air Room Air Room Air EWS Level of Consciousness - Last Result EWS Temperature - Last Result EWS Respiratory Rate - Last Result EWS Oxygen Saturation - Last Result EWS Oxygen in Use - Last Result EWS Score EWS Clinical Risk 10/22/24 02:20 10/22/24 03:47 10/22/24 07:00 Temperature Temperature Source Pulse Rate 69 68 Pulse Rate [Apical] Pulse Rate [Finger] Pulse Rhythm [Apical] Pulse Strength [Apical] Respiratory Rate Respiratory Effort / Characteristics Respiratory Depth Respiratory Pattern Blood Pressure [Right Arm] Blood Pressure Mean [Right Arm] Blood Pressure Position [Right Arm] Pulse Oximetry Oxygen Delivery Method EWS Level of Consciousness - Last Result Spontaneously Alert EWS Temperature - Last Result 36.7 EWS Respiratory Rate - Last Result 16 EWS Oxygen Saturation - Last Result 100 EWS Oxygen in Use - Last Result No EWS Score 1 EWS Clinical Risk Low Risk 10/22/24 07:11 10/22/24 07:11 Temperature 36.6 C Temperature Source Oral Pulse Rate Pulse Rate [Apical] Pulse Rate [Finger] 66 Pulse Rhythm [Apical] Pulse Strength [Apical] Respiratory Rate 18 Respiratory Effort / Characteristics Respiratory Depth Respiratory Pattern Blood Pressure [Right Arm] 90/54 L Blood Pressure Mean [Right Arm] 66 Blood Pressure Position [Right Arm] Pulse Oximetry 95 Oxygen Delivery Method Room Air EWS Level of Consciousness - Last Result Spontaneously Alert EWS Temperature - Last Result 36.6 EWS Respiratory Rate - Last Result 18 EWS Oxygen Saturation - Last Result 95 EWS Oxygen in Use - Last Result No EWS Score 4 EWS Clinical Risk Moderate Risk Home Medications Current Medication List: was personally reviewed by me Laboratory Data Attestation: I reviewed the patient's lab results. 10/22/24 17:59 10/22/24 06:17 Lab Results 10/21/24 10/21/24 10/21/24 Range/Units 15:40 15:47 19:02 WBC 12.96 H (4.8-10.8) K/ul RBC 4.88 (4.20-5.40) M/uL Hgb 14.9 (12.0-16.0) g/dl POC Hgb 15.3 (12.0-16.0) g/dl Hct 44.6 (37.0-47.0) % POC Hct 45 (37-47) % MCV 91.4 (80.0-100.0) fL MCH 30.5 (25.0-34.0) pg MCHC 33.4 (32.0-36.0) g/dL RDW Std Deviation 41.3 (36.4-46.3) fL RDW Coeff of Brent 12.6 (11.5-14.5) % Plt Count 277 (130-400) K/uL MPV 9.9 (9.4-12.4) fL Immature Gran % (Auto) 0.4 % Neut % (Auto) 75.6 % Lymph % (Auto) 14.9 % [place] % (Auto) 7.5 % Eos % (Auto) 1.2 % Baso % (Auto) 0.4 % Neut # (Auto) 9.80 H (1.40-6.50) K/uL Lymph # (Auto) 1.93 (1.20-3.40) K/uL [place] # (Auto) 0.97 H (0.11-0.59) K/uL Eos # (Auto) 0.16 (0.00-0.50) K/uL Baso # (Auto) 0.05 (0.00-0.20) K/uL Immature Gran # (Auto) 0.05 (0.01-0.20) K/uL PT 10.5 (9.0-12.0) Seconds INR 1.0 (0.9-1.1) APTT 27 (21-31) Seconds PTT Ratio 1.0 POC Sodium 141 (135-144) mmol/L Sodium 138 (136-145) mmol/L POC Potassium 3.7 (3.3-5.0) mmol/L Potassium 3.8 (3.5-5.1) mmol/L POC Chloride 105 (101-112) mmol/L Chloride 105 (98-107) mmol/L Carbon Dioxide 26 (21-32) mmol/L POC Total CO2 22 L (24-31) mmol/L Anion Gap 7 (3-11) POC Anion Gap 18.0 (16-25) mmol/L POC BUN 17 (7-18) mg/dl BUN 17 (6-23) mg/dl Creatinine 1.08 (0.6-1.2) mg/dl POC Creatinine 1.1 (0.6-1.3) mg/dl Est Cr Clr Drug Dosing 32.9 ml/min eGFR 50.02 BUN/Creatinine Ratio 15.7 (10-20) Glucose 120 H (70-99(Fasting)) mg/dl POC Glucose 121 H (70-99) mg/dl POC Glucose (other) 122 H (70-99) mg/dl Estimat Average Glucose mg/dl Hemoglobin A1c (4.5-5.6) % Calcium 9.0 (8.6-10.3) mg/dl POC Ioniz Calcium Sam 1.21 (1.12-1.32) mmol/l Iron (35-150) mcg/dl Transferrin (200-360) mg/dl Ferritin (8-388) ng/ml Total Bilirubin 0.6 (0.2-1.0) mg/dl AST 22 (13-39) U/L ALT 11 (7-52) U/L Alkaline Phosphatase 82 (34-104) U/L Total Creatine Kinase 158 (26-192) U/L Total Protein 6.7 (6.0-8.3) gm/dl Albumin 4.0 (3.4-5.0) gm/dl Globulin 2.7 (2.5-4.0) gm/dl Albumin/Globulin Ratio 1.5 (0.9-2) Vitamin B12 (180-914) pg/ml Folate (>5.38) ng/ml 10/22/24 10/22/24 Range/Units 06:17 11:59 WBC 7.31 (4.8-10.8) K/ul RBC 3.06 L (4.20-5.40) M/uL Hgb 9.4 L D 9.7 L (12.0-16.0) g/dl POC Hgb (12.0-16.0) g/dl Hct 28.6 L 28.7 L (37.0-47.0) % POC Hct (37-47) % MCV 93.5 (80.0-100.0) fL MCH 30.7 (25.0-34.0) pg MCHC 32.9 (32.0-36.0) g/dL RDW Std Deviation 43.5 (36.4-46.3) fL RDW Coeff of Brent 12.7 (11.5-14.5) % Plt Count 202 (130-400) K/uL MPV 10.5 (9.4-12.4) fL Immature Gran % (Auto) 0.3 % Neut % (Auto) 66.1 % Lymph % (Auto) 21.6 % [place] % (Auto) 10.5 % Eos % (Auto) 1.1 % Baso % (Auto) 0.4 % Neut # (Auto) 4.83 (1.40-6.50) K/uL Lymph # (Auto) 1.58 (1.20-3.40) K/uL [place] # (Auto) 0.77 H (0.11-0.59) K/uL Eos # (Auto) 0.08 (0.00-0.50) K/uL Baso # (Auto) 0.03 (0.00-0.20) K/uL Immature Gran # (Auto) 0.02 (0.01-0.20) K/uL PT (9.0-12.0) Seconds INR (0.9-1.1) APTT (21-31) Seconds PTT Ratio POC Sodium (135-144) mmol/L Sodium 141 (136-145) mmol/L POC Potassium (3.3-5.0) mmol/L Potassium 3.8 (3.5-5.1) mmol/L POC Chloride (101-112) mmol/L Chloride 115 H (98-107) mmol/L Carbon Dioxide 23 (21-32) mmol/L POC Total CO2 (24-31) mmol/L Anion Gap 3 (3-11) POC Anion Gap (16-25) mmol/L POC BUN (7-18) mg/dl BUN 16 (6-23) mg/dl Creatinine 0.72 D (0.6-1.2) mg/dl POC Creatinine (0.6-1.3) mg/dl Est Cr Clr Drug Dosing 48.6 ml/min eGFR 81.38 BUN/Creatinine Ratio 22.2 H (10-20) Glucose 96 (70-99(Fasting)) mg/dl POC Glucose (70-99) mg/dl POC Glucose (other) (70-99) mg/dl Estimat Average Glucose 114 mg/dl Hemoglobin A1c 5.6 (4.5-5.6) % Calcium 7.6 L (8.6-10.3) mg/dl POC Ioniz Calcium Sam (1.12-1.32) mmol/l Iron 70 (35-150) mcg/dl Transferrin 193 L (200-360) mg/dl Ferritin 21.8 (8-388) ng/ml Total Bilirubin (0.2-1.0) mg/dl AST (13-39) U/L ALT (7-52) U/L Alkaline Phosphatase (34-104) U/L Total Creatine Kinase (26-192) U/L Total Protein (6.0-8.3) gm/dl Albumin (3.4-5.0) gm/dl Globulin (2.5-4.0) gm/dl Albumin/Globulin Ratio (0.9-2) Vitamin B12 > 1500 H (180-914) pg/ml Folate > 22.30 (>5.38) ng/ml Administered Medications Calcium/Vitamin D (Calcium 600mg + Vit D 400 Iu Tab) 1 tab PO DAILY [facility] Stop: 11/21/24 08:59 Last Admin: 10/22/24 09:18 Dose: 1 tab Documented By: MARGARET Sodium Chloride (Nss) 1,000 mls @ 75 mls/hr IV .[id number] [facility] Stop: 10/25/24 15:14 Last Admin: 10/22/24 16:04 Dose: 75 mls/hr Documented By: MARGARET Miscellaneous (Remove Lidoderm Patch) 1 each N/A DAILY@2100 [facility] Stop: 11/20/24 20:59 Last Admin: 10/22/24 20:56 Dose: Not Given Documented By: Admin: 10/22/24 04:21 Dose: 1 each Documented By: SALVATORE Multivitamins/Minerals (Cerovite Adv Formula Tab) 1 tab PO DAILY [facility] Stop: 11/21/24 08:59 Last Admin: 10/22/24 09:18 Dose: 1 tab Documented By: [facility] Pantoprazole Sodium (Pantoprazole 40 Mg Tab) 40 mg PO QAM [facility] Stop: 11/21/24 08:59 Last Admin: 10/22/24 09:18 Dose: 40 mg Documented By: [facility] Simvastatin (Simvastatin 40 Mg Tab) 40 mg PO QPM [facility] Stop: 11/21/24 20:59 Last Admin: 10/22/24 20:56 Dose: 40 mg Documented By: SALVATORE Tramadol HCl (Tramadol Hcl 50 Mg Tablet) 25 - 50 mg PO Q4H PRN PRN Reason: Pain Stop: 11/20/24 23:51 Last Admin: 10/22/24 21:18 Dose: 50 mg Documented By: Admin: 10/22/24 17:36 Dose: 50 mg Documented By: [facility] Admin: 10/22/24 09:17 Dose: 50 mg Documented By: [facility] Admin: 10/22/24 04:15 Dose: 50 mg Documented By: Admin: 10/22/24 00:21 Dose: 50 mg Documented By: QGV Discontinued Medications Fentanyl Citrate (Fentanyl Citrate Pf 100 Mcg/2 Ml Vial) 25 mcg IV NOW STA Stop: 10/21/24 17:20 Last Admin: 10/21/24 17:38 Dose: 25 mcg Documented By: HANG Sodium Chloride (Nss) 500 mls @ 999 mls/hr IV .Q31M [facility] Stop: 10/21/24 16:15 Last Infusion: 10/21/24 16:42 Dose: Infused Documented By: Admin: 10/21/24 16:06 Dose: 999 mls/hr Documented By: QGV Acetaminophen 500 mg/ EMPTY (BAG) 50 mls @ 200 mls/hr IV NOW ONE Stop: 10/21/24 15:39 Last Infusion: 10/21/24 16:34 Dose: Infused Documented By: Admin: 10/21/24 16:06 Dose: 200 mls/hr Documented By: QGV Sodium Chloride (Nss) 500 mls @ 999 mls/hr IV .Q31M ONE Stop: 10/21/24 19:23 Last Infusion: 10/21/24 19:41 Dose: Infused Documented By: Admin: 10/21/24 18:57 Dose: 999 mls/hr Documented By: HANG Sodium Chloride (Nss) 1,000 mls @ 999 mls/hr IV .Q1H1M ONE Stop: 10/21/24 20:44 Last Infusion: 10/21/24 20:52 Dose: Infused Documented By: Admin: 10/21/24 19:50 Dose: 999 mls/hr Documented By: EJW Potassium Chloride/Sodium Chloride (Normal Saline W/20 Meq Kcl) 20 meq in 1,000 mls @ 100 mls/hr IV .Q10H STA Stop: 10/22/24 07:54 Last Infusion: 10/22/24 08:55 Dose: Infused Documented By: Admin: 10/21/24 22:54 Dose: 100 mls/hr Documented By: QGV Acetaminophen (Ofirmev) 1,000 mg in 100 mls @ 400 mls/hr IV NOW STA Stop: 10/21/24 22:57 Last Infusion: 10/21/24 23:24 Dose: Infused Documented By: Admin: 10/21/24 22:54 Dose: 400 mls/hr Documented By: QGV Ioversol (Optiray 320 100ml) 90 ml IV ONCE ONE Stop: 10/21/24 15:57 Last Admin: 10/21/24 15:56 Dose: 90 ml Documented By: KAVYA Ketorolac Tromethamine (Ketorolac Tromethamine 15 Mg/Ml Vial) 10 mg IV NOW STA Stop: 10/21/24 23:55 Last Admin: 10/21/24 23:57 Dose: 10 mg Documented By: QGV Lidocaine (Lidocaine 5% 1 Patch) 1 patch TD NOW STA Stop: 10/21/24 17:20 Last Admin: 10/21/24 17:37 Dose: 1 patch Documented By: HANG Imaging Data Radiologist's Impression: Abdomen/Pelvis CT 10/21/24 15:38 Technique: Axial images were obtained along with coronal and sagittal reconstruction. Patient was injected with contrast intravenously, the amount and type is recorded in the EMR DLP in mGycm reported in the EMR record. Dose lowering technique: Automated exposure control with adjustment of the MA and/or KV, use of iterative reconstruction. Data included in the medical record Findings: Moderate size hiatal hernia. Low-density areas noted in the liver believed to be hepatic cysts, the largest measures 19 mm. Spleen is normal. Pancreas is unremarkable. Kidneys are normal. No free air, free fluid or evidence of bowel obstruction. No pelvic mass or pelvic hematoma. Urinary bladder is intact. No vertebral compression deformity. Severe disc space narrowing at several levels. Grade 1 anterolisthesis of L4. Impression No acute process Electronically signed by Jordyn Aguiar 10-21-2024 5:[address] 10/21/24 15:38 CT head without contrast History: Comparison: None Technique: Using multidetector thin collimation helical acquisition technique, axial, coronal and sagittal CT images from the skull base to the vertex were obtained without intravenous contrast. Dose reduction techniques were achieved by using automatic exposure control and/or adjustment of mA and/or kV according to patient size and/or use of iterative reconstruction technique. Findings: There is no acute territorial infarct, hemorrhage or abnormal mass effect. There is no intracranial mass identified. Moderate atrophy and small vessel ischemic white matter disease. No shift of midline structures. No depressed skull fracture. No extra-axial fluid collection. Posterior fossa structures are grossly unremarkable Impression No acute intracranial process. 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 Electronically signed by Jordyn Aguiar 10-21-2024 4:52 PM Femur X-Ray 10/21/24 16:02 4 views of the right femur were obtained. Evaluation right hip was limited by technique. No definite fracture or dislocation. Narrowing of the hip joint space. Right sided knee prosthesis. No malalignment or complicating process. Impression No acute process. Electronically signed by Jordyn Aguiar 10-21-2024 5:10 PM Abdomen/Pelvis CT 10/21/24 15:38 Technique: Axial images were obtained along with coronal and sagittal reconstruction. Patient was injected with contrast intravenously, the amount and type is recorded in the EMR DLP in mGycm reported in the EMR record. Dose lowering technique: Automated exposure control with adjustment of the MA and/or KV, use of iterative reconstruction. Data included in the medical record Findings: Moderate size hiatal hernia. Low-density areas noted in the liver believed to be hepatic cysts, the largest measures 19 mm. Spleen is normal. Pancreas is unremarkable. Kidneys are normal. No free air, free fluid or evidence of bowel obstruction. No pelvic mass or pelvic hematoma. Urinary bladder is intact. No vertebral compression deformity. Severe disc space narrowing at several levels. Grade 1 anterolisthesis of L4. Impression No acute process Electronically signed by Jordyn Aguiar 10-21-2024 5:[address] 10/21/24 15:38 CT cervical spine without IV contrast History: Comparison: None Technique: Using multidetector thin collimation helical acquisition technique, axial, coronal and sagittal CT images through the cervical spine were obtained without intravenous contrast. Dose reduction techniques were achieved by using automatic exposure control and/or adjustment of mA and/or kV according to patient size and/or use of iterative reconstruction technique. Findings: [id number] articulation appeared normal. Odontoid process is intact. No acute compression deformities. Posterior elements are intact. No acute process. Prevertebral soft tissues are normal. Airways are patent. Degenerative changes:[id number] articulation appeared normal. Odontoid process is intact. No acute compression deformities. Posterior elements are intact. No acute process. Prevertebral soft tissues are normal. Airways are patent. Degenerative changes: Facet arthropathy. Left foraminal narrowing at C3-C4. Right foraminal narrowing at C4-C5. Bilateral foraminal narrowing C5-C6 and C6-C7. Impression Degenerative changes Electronically signed by Jordyn Aguiar 10-21-2024 4:[address] 10/21/24 15:38 Technique: Axial images were obtained along with coronal and sagittal reconstruction. Patient was injected with contrast intravenously, the amount and type is recorded in the EMR DLP in mGycm reported in the EMR record. Dose lowering technique: Automated exposure control with adjustment of the MA and/or KV, use of iterative reconstruction. Data included in the medical record Findings: No mediastinal hematoma. Vascular structures are intact. No cardiomegaly or pericardial effusion. Lung reynolds are clear. No pneumothorax or pleural effusion. Central airways are patent. No definite rib fracture identified. No sternal fracture or vertebral compression deformity. Impression No acute process. Electronically signed by Jordyn Aguiar 10-21-2024 4:57 PM Chest X-Ray 10/21/24 15:38 Chest radiograph, one view History: Chest pain Comparison: Findings: Single AP view of the chest performed. No focal consolidation or pleural effusion. No pneumothorax. The cardiomediastinal silhouette is within normal limits. Normal pulmonary vascularity. No evidence for lymphadenopathy. No visualized bony or soft tissue abnormality. Impression: Normal chest radiograph Electronically signed by Jordyn Aguiar 10-21-2024 4:[address] 10/21/24 15:38 CT head without contrast History: Comparison: None Technique: Using multidetector thin collimation helical acquisition technique, axial, coronal and sagittal CT images from the skull base to the vertex were obtained without intravenous contrast. Dose reduction techniques were achieved by using automatic exposure control and/or adjustment of mA and/or kV according to patient size and/or use of iterative reconstruction technique. Findings: There is no acute territorial infarct, hemorrhage or abnormal mass effect. There is no intracranial mass identified. Moderate atrophy and small vessel ischemic white matter disease. No shift of midline structures. No depressed skull fracture. No extra-axial fluid collection. Posterior fossa structures are grossly unremarkable Impression No acute intracranial process. 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 Electronically signed by Jordyn Aguiar 10-21-2024 4:52 PM Hip/Pelvis X-Ray 10/21/24 15:38 Extremity Radiograph : History: Pain Comparison None. Findings: 3 views No fracture or malalignment. Mild narrowing of the right hip joint. Moderate narrowing of the left hip joint. There is no soft tissue swelling. No visualized foreign bodies. Impression Normal radiograph. Electronically signed by Jordyn Aguiar 10-21-2024 4:04 PM Femur X-Ray 10/21/24 16:02 4 views of the right femur were obtained. Evaluation right hip was limited by technique. No definite fracture or dislocation. Narrowing of the hip joint space. Right sided knee prosthesis. No malalignment or complicating process. Impression No acute process. Electronically signed by Jordyn Aguiar 10-21-2024 5:10 PM Discharge Plan Visit Data Chief Complaint: Trauma ED Provider: Mckinley Maki Discharge Problem: Status post fall, CHI (closed head injury), Acute dehydration, Postural hypotension Patient Disposition: Admitted As Inpatient Condition: Fair Discharge Instructions Interventions: ED Discharge Assessment Last Done: 10/22/24 01:35 Discharge Problem: CHI (closed head injury) Qualifiers: Encounter type: initial encounter Qualified Code(s): S09.90XA - Unspecified injury of head, initial encounter
[2024-10-21 15:56] LABS: Basophils # (auto) 0.05 K/uL (0.00-0.20); Basophils % (auto) 0.4 %; Eosinophils # (auto) 0.16 K/uL (0.00-0.50); Eosinophils % (auto) 1.2 %; Hematocrit (blood only) 44.6 % (37.0-47.0); Hemoglobin 14.9 g/dl (12.0-16.0); Immature Granulocytes # (auto) 0.05 K/uL (0.01-0.20); Immature Granulocytes % (auto) 0.4 %; Lymphocytes # (auto) 1.93 K/uL (1.20-3.40); Lymphocytes % (auto) 14.9 %; Mean Corpuscular Hemoglobin 30.5 pg (25.0-34.0); Mean Corpuscular Hgb Conc 33.4 g/dL (32.0-36.0); Mean Corpuscular Volume 91.4 fL (80.0-100.0); Mean Platelet Volume 9.9 fL (9.4-12.4); Monocytes # (auto) 0.97 K/uL (0.11-0.59); Monocytes % (auto) 7.5 %; Neutrophils % (auto) 75.6 %; Platelet Count 277 K/uL (130-400); RDW Coefficient of Variation 12.6 % (11.5-14.5); RDW Standard Deviation 41.3 fL (36.4-46.3); Red Blood Count 4.88 M/uL (4.20-5.40); White Blood Count 12.96 K/ul (4.8-10.8)
[2024-10-21] MEDS: OPTIRAY 320 100ml IV ONE (15:56)
[2024-10-21 15:58] LABS: iSTAT Creatinine 1.1 mg/dl (0.6-1.3); iSTAT Hemoglobin 15.3 g/dl (12.0-16.0); iSTAT Ionized Calcium 1.21 mmol/l (1.12-1.32); iSTAT Potassium 3.7 mmol/L (3.3-5.0)
--- NOTE | 2024-10-21 16:03 | XRay Report ---
Chest radiograph, one view History: Chest pain Comparison: Findings: Single AP view of the chest performed. No focal consolidation or pleural effusion. No pneumothorax. The cardiomediastinal silhouette is within normal limits. Normal pulmonary vascularity. No evidence for lymphadenopathy. No visualized bony or soft tissue abnormality. Impression: Normal chest radiograph Electronically signed by Jordyn Aguiar 10-21-2024 4:02 PM
--- NOTE | 2024-10-21 16:04 | XRay Report ---
Extremity Radiograph : History: Pain Comparison None. Findings: 3 views No fracture or malalignment. Mild narrowing of the right hip joint. Moderate narrowing of the left hip joint. There is no soft tissue swelling. No visualized foreign bodies. Impression Normal radiograph. Electronically signed by Jordyn Aguiar 10-21-2024 4:04 PM
[2024-10-21] MEDS: ACETAMINOPHEN 10MG/ML Custom 500 MG in EMPTY BAG 0 ML IV ONE (16:06)
[2024-10-21] MEDS: SODIUM CHLORIDE 0.9% 500 ML IV SCH (16:06)
[2024-10-21 16:23] LABS: Partial Thromboplastin Time 27 Seconds (21-31); Prothrombin Time 10.5 Seconds (9.0-12.0)
[2024-10-21 16:28] LABS: Albumin Globulin Ratio 1.5 (0.9-2); BUN Creatinine Ratio 15.7 (10-20); Bilirubin,Total 0.6 mg/dl (0.2-1.0); Creatinine Clr Calc Pharmacy 32.9 ml/min; Globulin 2.7 gm/dl (2.5-4.0); Potassium 3.8 mmol/L (3.5-5.1); Total Protein 6.7 gm/dl (6.0-8.3)
--- NOTE | 2024-10-21 16:52 | CT Scan Report ---
CT head without contrast History: Comparison: None Technique: Using multidetector thin collimation helical acquisition technique, axial, coronal and sagittal CT images from the skull base to the vertex were obtained without intravenous contrast. Dose reduction techniques were achieved by using automatic exposure control and/or adjustment of mA and/or kV according to patient size and/or use of iterative reconstruction technique. Findings: There is no acute territorial infarct, hemorrhage or abnormal mass effect. There is no intracranial mass identified. Moderate atrophy and small vessel ischemic white matter disease. No shift of midline structures. No depressed skull fracture. No extra-axial fluid collection. Posterior fossa structures are grossly unremarkable Impression No acute intracranial process. 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 Electronically signed by Jordyn Aguiar 10-21-2024 4:52 PM
--- NOTE | 2024-10-21 16:55 | CT Scan Report ---
CT cervical spine without IV contrast History: Comparison: None Technique: Using multidetector thin collimation helical acquisition technique, axial, coronal and sagittal CT images through the cervical spine were obtained without intravenous contrast. Dose reduction techniques were achieved by using automatic exposure control and/or adjustment of mA and/or kV according to patient size and/or use of iterative reconstruction technique. Findings: [id number]-[id number] articulation appeared normal. Odontoid process is intact. No acute compression deformities. Posterior elements are intact. No acute process. Prevertebral soft tissues are normal. Airways are patent. Degenerative changes:[id number]-Y3-V9 articulation appeared normal. Odontoid process is intact. No acute compression deformities. Posterior elements are intact. No acute process. Prevertebral soft tissues are normal. Airways are patent. Degenerative changes: Facet arthropathy. Left foraminal narrowing at C3-C4. Right foraminal narrowing at C4-C5. Bilateral foraminal narrowing C5-C6 and C6-C7. Impression Degenerative changes Electronically signed by Jordyn Aguiar 10-21-2024 4:54 PM
--- NOTE | 2024-10-21 16:58 | CT Scan Report ---
Technique: Axial images were obtained along with coronal and sagittal reconstruction. Patient was injected with contrast intravenously, the amount and type is recorded in the EMR DLP in mGycm reported in the EMR record. Dose lowering technique: Automated exposure control with adjustment of the MA and/or KV, use of iterative reconstruction. Data included in the medical record Findings: No mediastinal hematoma. Vascular structures are intact. No cardiomegaly or pericardial effusion. Lung reynolds are clear. No pneumothorax or pleural effusion. Central airways are patent. No definite rib fracture identified. No sternal fracture or vertebral compression deformity. Impression No acute process. Electronically signed by Jordyn Aguiar 10-21-2024 4:57 PM
--- NOTE | 2024-10-21 17:01 | CT Scan Report ---
Technique: Axial images were obtained along with coronal and sagittal reconstruction. Patient was injected with contrast intravenously, the amount and type is recorded in the EMR DLP in mGycm reported in the EMR record. Dose lowering technique: Automated exposure control with adjustment of the MA and/or KV, use of iterative reconstruction. Data included in the medical record Findings: Moderate size hiatal hernia. Low-density areas noted in the liver believed to be hepatic cysts, the largest measures 19 mm. Spleen is normal. Pancreas is unremarkable. Kidneys are normal. No free air, free fluid or evidence of bowel obstruction. No pelvic mass or pelvic hematoma. Urinary bladder is intact. No vertebral compression deformity. Severe disc space narrowing at several levels. Grade 1 anterolisthesis of L4. Impression No acute process Electronically signed by Jordyn Aguiar 10-21-2024 5:01 PM
--- NOTE | 2024-10-21 17:10 | XRay Report ---
4 views of the right femur were obtained. Evaluation right hip was limited by technique. No definite fracture or dislocation. Narrowing of the hip joint space. Right sided knee prosthesis. No malalignment or complicating process. Impression No acute process. Electronically signed by Jordyn Aguiar 10-21-2024 5:10 PM
[2024-10-21] MEDS: LIDOCAINE 5% 1 PATCH TD STA (17:37)
[2024-10-21] MEDS: fentaNYL citrate PF 100 MCG/2 ML VIAL IV STA (17:38)
[2024-10-21] MEDS: SODIUM CHLORIDE 0.9% 500 ML IV ONE (18:57)
[2024-10-21] MEDS: SODIUM CHLORIDE 0.9% 1,000 ML IV ONE (19:50)
[2024-10-21] MEDS: ACETAMINOPHEN 1,000 MG/100 ML VIAL IV STA (22:54)
[2024-10-21] MEDS: NSS + 20MEQ KCL 20 MEQ/1,000 ML BAG IV STA (22:54)
--- NOTE | 2024-10-21 23:10 | History & Physical Report ---
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 SCDs Re: Recent fall/head trauma DNR personal trainer (Mr. Kevin Morgan, son, contact #[phone].) Text document was generated using [employer] voice recognition software. It may contain grammatical or spelling errors. Kindly contact undersigned for clarification of any documentation item in question. History of Present Illness Chief Complaint: Fall Primary Care Provider: Adeola Kong DO History obtained from patient and records. Medical history significant for skin cancer status post surgery, neuropathy, legal blindness, mood disorder. Patient fell down a flight of stairs while carrying a bag around noontime today. Head trauma without LOC. Achy right-sided hip pain. Denies LOC, chest pain, SOB. Right forearm tear resulting from fall. Patient brought to ER for evaluation. SBP 80s and dizziness on ambulation at the ER. Medical History as above Surgical History : Hiatal hernia repair, knee surgeries, REBECCA/BSO, appendectomy Family History : Heart disease, alcoholism, COPD, MDS, AAA, suicide Personal/Social history : Non-smoker, occasional EtOH intake, retired [employer] employee Allergies Allergy/AdvReac Type Severity Reaction Status Date / Time No Known Allergies Allergy Unverified 10/21/24 18:43 Home Medications Medication Instructions Recorded Confirmed Type calcium 600 mg (as 1 tab PO DAILY 02/25/22 10/21/24 History carbonate)-vitamin D3 5 mcg (200 unit) tablet (Calcium 600 + D(3)) lysine HCl 1,000 mg tablet 1,000 mg PO Q2D 02/25/22 10/21/24 History multivitamin with minerals 1 tab PO DAILY 02/25/22 10/21/24 History (Hair,Skin and Nails tablet) pantoprazole 40 mg tablet,delayed 40 mg PO QAM 02/25/22 10/21/24 History release simvastatin 40 mg tablet 40 mg PO QPM 02/25/22 10/21/24 History vit C 250 mg-vit E 90 mg-zinc 40 1 tab PO BID 02/25/22 10/21/24 History mg-copper 1 na-jogikz-fomwca capsule (PreserVision AREDS-2) gabapentin 100 mg capsule 100 mg PO HS PRN Pain/Sleep 10/21/24 10/21/24 History Past Med/Surg History Problem List (Updated 10/22/24 @ 01:45 by Kristian Jackson MD) Hypotension Social History Smoking Status: Never smoker Hx Alcohol Use: No Hx Substance Use: No Preferred Language: Kazakh Advice Clerk Required: No Beliefs That Will Affect Care: None Current Living Situation: Family Current Living Situation Comment: with son and [id number]-[id number] Other Information That Helps Us Care for You: No Feels Safe at Home: Yes Safety Concerns: Feels Safe At This Time Assistive Devices: Cane, Glasses, Hearing Aid - Bilateral and Other Assistive Devices Comment: many various visual aids Review of Systems Review of Systems: As per HPI, admits to depression without suicidality, all other systems reviewed and negative Physical Exam Physical Exam: GENERAL: Comfortable, pleasant, no respiratory distress SKIN: Normal color, warm HEENT: [place] palpebral conjunctivae, no ptosis, dry buccal mucosa NECK : Supple, no tenderness CHEST : CTA, no tenderness HEART : RRR, no obvious murmurs ABDOMEN: Some distention, nontender EXTREMITIES : Bandage over right forearm, no LE swelling/tenderness, palpable pulses, no other conspicuous deformities noted NEUROLOGIC : Coherent, no facial asymmetry, no other gross focality Results & Data Results & Data Vital Signs (Past 12 Hours) Vital Signs Temp Pulse Pulse Resp BP BP Pulse Ox 10/21/24 22:00 84 20 115/60 98 10/21/24 21:00 80 20 110/75 97 10/21/24 20:00 83 20 116/65 97 10/21/24 19:50 82 10/21/24 19:45 71 19 124/61 96 10/21/24 19:39 96/49 L 10/21/24 19:35 101/67 10/21/24 19:32 130/79 10/21/24 19:31 119/66 10/21/24 19:00 75 21 136/76 95 10/21/24 18:55 75 21 84/51 L 96 10/21/24 18:02 75 22 131/76 100 10/21/24 17:40 74 20 128/69 98 10/21/24 17:11 75 12 149/83 H 100 10/21/24 16:33 70 24 144/73 H 100 10/21/24 16:19 100 10/21/24 16:10 78 10/21/24 15:30 36.8 C 91 H 18 148/77 H 98 O2 Del Method O2 Flow Rate 10/21/24 22:00 Room Air 10/21/24 21:00 Room Air 10/21/24 20:00 Room Air 10/21/24 19:50 10/21/24 19:45 10/21/24 19:39 10/21/24 19:35 10/21/24 19:32 10/21/24 19:31 10/21/24 19:00 Room Air 10/21/24 18:55 Room Air 10/21/24 18:02 Room Air 10/21/24 17:40 Room Air 10/21/24 17:11 Room Air 10/21/24 16:33 Room Air 10/21/24 16:19 Room Air 10/21/24 16:10 10/21/24 15:30 Room Air 0 Laboratory Results Laboratory Results WBC 12.96 K/ul (4.8-10.8) H 10/21/24 15:40 RBC 4.88 M/uL (4.20-5.40) 10/21/24 15:40 Hgb 14.9 g/dl (12.0-16.0) 10/21/24 15:40 POC Hgb 15.3 g/dl (12.0-16.0) 10/21/24 15:47 Hct 44.6 % (37.0-47.0) 10/21/24 15:40 POC Hct 45 % (37-47) 10/21/24 15:47 MCV 91.4 fL (80.0-100.0) 10/21/24 15:40 MCH 30.5 pg (25.0-34.0) 10/21/24 15:40 MCHC 33.4 g/dL (32.0-36.0) 10/21/24 15:40 RDW Std Deviation 41.3 fL (36.4-46.3) 10/21/24 15:40 RDW Coeff of Brent 12.6 % (11.5-14.5) 10/21/24 15:40 Plt Count 277 K/uL (130-400) 10/21/24 15:40 MPV 9.9 fL (9.4-12.4) 10/21/24 15:40 Immature Gran % (Auto) 0.4 % 10/21/24 15:40 Neut % (Auto) 75.6 % 10/21/24 15:40 Lymph % (Auto) 14.9 % 10/21/24 15:40 Door % (Auto) 7.5 % 10/21/24 15:40 Eos % (Auto) 1.2 % 10/21/24 15:40 Baso % (Auto) 0.4 % 10/21/24 15:40 Neut # (Auto) 9.80 K/uL (1.40-6.50) H 10/21/24 15:40 Lymph # (Auto) 1.93 K/uL (1.20-3.40) 10/21/24 15:40 Door # (Auto) 0.97 K/uL (0.11-0.59) H 10/21/24 15:40 Eos # (Auto) 0.16 K/uL (0.00-0.50) 10/21/24 15:40 Baso # (Auto) 0.05 K/uL (0.00-0.20) 10/21/24 15:40 Immature Gran # (Auto) 0.05 K/uL (0.01-0.20) 10/21/24 15:40 PT 10.5 Seconds (9.0-12.0) 10/21/24 15:40 INR 1.0 (0.9-1.1) 10/21/24 15:40 APTT 27 Seconds (21-31) 10/21/24 15:40 PTT Ratio 1.0 10/21/24 15:40 POC Sodium 141 mmol/L (135-144) 10/21/24 15:47 Sodium 138 mmol/L (136-145) 10/21/24 15:40 POC Potassium 3.7 mmol/L (3.3-5.0) 10/21/24 15:47 Potassium 3.8 mmol/L (3.5-5.1) 10/21/24 15:40 POC Chloride 105 mmol/L (101-112) 10/21/24 15:47 Chloride 105 mmol/L (98-107) 10/21/24 15:40 Carbon Dioxide 26 mmol/L (21-32) 10/21/24 15:40 POC Total CO2 22 mmol/L (24-31) L 10/21/24 15:47 Anion Gap 7 (3-11) 10/21/24 15:40 POC Anion Gap 18.0 mmol/L (16-25) 10/21/24 15:47 POC BUN 17 mg/dl (7-18) 10/21/24 15:47 BUN 17 mg/dl (6-23) 10/21/24 15:40 Creatinine 1.08 mg/dl (0.6-1.2) 10/21/24 15:40 POC Creatinine 1.1 mg/dl (0.6-1.3) 10/21/24 15:47 Est Cr Clr Drug Dosing 32.9 ml/min 10/21/24 15:40 eGFR 50.02 10/21/24 15:40 BUN/Creatinine Ratio 15.7 (10-20) 10/21/24 15:40 Glucose 120 mg/dl (70-99(Fasting)) H 10/21/24 15:40 POC Glucose 121 mg/dl (70-99) H 10/21/24 19:02 POC Glucose (other) 122 mg/dl (70-99) H 10/21/24 15:47 Calcium 9.0 mg/dl (8.6-10.3) 10/21/24 15:40 POC Ioniz Calcium Sam 1.21 mmol/l (1.12-1.32) 10/21/24 15:47 Total Bilirubin 0.6 mg/dl (0.2-1.0) 10/21/24 15:40 AST 22 U/L (13-39) 10/21/24 15:40 ALT 11 U/L (7-52) 10/21/24 15:40 Alkaline Phosphatase 82 U/L (34-104) 10/21/24 15:40 Total Creatine Kinase 158 U/L (26-192) 10/21/24 15:40 Total Protein 6.7 gm/dl (6.0-8.3) 10/21/24 15:40 Albumin 4.0 gm/dl (3.4-5.0) 10/21/24 15:40 Globulin 2.7 gm/dl (2.5-4.0) 10/21/24 15:40 Albumin/Globulin Ratio 1.5 (0.9-2) 10/21/24 15:40 Impressions Abdomen/Pelvis CT 10/21/24 15:38 Technique: Axial images were obtained along with coronal and sagittal reconstruction. Patient was injected with contrast intravenously, the amount and type is recorded in the EMR DLP in mGycm reported in the EMR record. Dose lowering technique: Automated exposure control with adjustment of the MA and/or KV, use of iterative reconstruction. Data included in the medical record Findings: Moderate size hiatal hernia. Low-density areas noted in the liver believed to be hepatic cysts, the largest measures 19 mm. Spleen is normal. Pancreas is unremarkable. Kidneys are normal. No free air, free fluid or evidence of bowel obstruction. No pelvic mass or pelvic hematoma. Urinary bladder is intact. No vertebral compression deformity. Severe disc space narrowing at several levels. Grade 1 anterolisthesis of L4. Impression No acute process Electronically signed by Jordyn Aguiar 10-21-2024 5:[address] 10/21/24 15:38 CT cervical spine without IV contrast History: Comparison: None Technique: Using multidetector thin collimation helical acquisition technique, axial, coronal and sagittal CT images through the cervical spine were obtained without intravenous contrast. Dose reduction techniques were achieved by using automatic exposure control and/or adjustment of mA and/or kV according to patient size and/or use of iterative reconstruction technique. Findings: [id number]-[id number]-M8 articulation appeared normal. Odontoid process is intact. No acute compression deformities. Posterior elements are intact. No acute process. Prevertebral soft tissues are normal. Airways are patent. Degenerative changes:[id number]-R8-W9 articulation appeared normal. Odontoid process is intact. No acute compression deformities. Posterior elements are intact. No acute process. Prevertebral soft tissues are normal. Airways are patent. Degenerative changes: Facet arthropathy. Left foraminal narrowing at C3-C4. Right foraminal narrowing at C4-C5. Bilateral foraminal narrowing C5-C6 and C6-C7. Impression Degenerative changes Electronically signed by Jordyn Aguiar 10-21-2024 4:[address] 10/21/24 15:38 Technique: Axial images were obtained along with coronal and sagittal reconstruction. Patient was injected with contrast intravenously, the amount and type is recorded in the EMR DLP in mGycm reported in the EMR record. Dose lowering technique: Automated exposure control with adjustment of the MA and/or KV, use of iterative reconstruction. Data included in the medical record Findings: No mediastinal hematoma. Vascular structures are intact. No cardiomegaly or pericardial effusion. Lung reynolds are clear. No pneumothorax or pleural effusion. Central airways are patent. No definite rib fracture identified. No sternal fracture or vertebral compression deformity. Impression No acute process. Electronically signed by Jordyn Aguiar 10-21-2024 4:57 PM Chest X-Ray 10/21/24 15:38 Chest radiograph, one view History: Chest pain Comparison: Findings: Single AP view of the chest performed. No focal consolidation or pleural effusion. No pneumothorax. The cardiomediastinal silhouette is within normal limits. Normal pulmonary vascularity. No evidence for lymphadenopathy. No visualized bony or soft tissue abnormality. Impression: Normal chest radiograph Electronically signed by Jordyn Aguiar 10-21-2024 4:[address] 10/21/24 15:38 CT head without contrast History: Comparison: None Technique: Using multidetector thin collimation helical acquisition technique, axial, coronal and sagittal CT images from the skull base to the vertex were obtained without intravenous contrast. Dose reduction techniques were achieved by using automatic exposure control and/or adjustment of mA and/or kV according to patient size and/or use of iterative reconstruction technique. Findings: There is no acute territorial infarct, hemorrhage or abnormal mass effect. There is no intracranial mass identified. Moderate atrophy and small vessel ischemic white matter disease. No shift of midline structures. No depressed skull fracture. No extra-axial fluid collection. Posterior fossa structures are grossly unremarkable Impression No acute intracranial process. 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 Electronically signed by Jordyn Aguiar 10-21-2024 4:52 PM Hip/Pelvis X-Ray 10/21/24 15:38 Extremity Radiograph : History: Pain Comparison None. Findings: 3 views No fracture or malalignment. Mild narrowing of the right hip joint. Moderate narrowing of the left hip joint. There is no soft tissue swelling. No visualized foreign bodies. Impression Normal radiograph. Electronically signed by Jordyn Aguiar 10-21-2024 4:04 PM Femur X-Ray 10/21/24 16:02 4 views of the right femur were obtained. Evaluation right hip was limited by technique. No definite fracture or dislocation. Narrowing of the hip joint space. Right sided knee prosthesis. No malalignment or complicating process. Impression No acute process. Electronically signed by Jordyn Aguiar 10-21-2024 5:10 PM Diagnostic Findings EKG as per my interpretation :
[2024-10-21] MEDS ORDERED: PROMETHAZINE 6.25 MG/50.25 ML BAG IV PRN (23:13)
[2024-10-21] MEDS ORDERED: ACETAMINOPHEN 325 MG TAB PO PRN (23:13)
[2024-10-21] MEDS ORDERED: NON-FORMULARY MEDICATION (Vit C,E-Zn-Coppr-Lutein-Zeaxan [Preservision Areds-2] 250-90-40- PO SCH (23:15)
[2024-10-21] MEDS ORDERED: KETOROLAC TROMETHAMINE 15 MG/ML VIAL IV PRN (23:52)
[2024-10-21] MEDS: KETOROLAC TROMETHAMINE 15 MG/ML VIAL IV STA (23:57)
[2024-10-22] MEDS: traMADol HCL 50 MG TABLET PO PRN (00:21)
[2024-10-22 07:35] LABS: BUN Creatinine Ratio 22.2 (10-20); Calcium 7.6 mg/dl (8.6-10.3); Creatinine Clr Calc Pharmacy 48.6 ml/min; Potassium 3.8 mmol/L (3.5-5.1)
[2024-10-22 07:37] LABS: Basophils # (auto) 0.03 K/uL (0.00-0.20); Basophils % (auto) 0.4 %; Eosinophils # (auto) 0.08 K/uL (0.00-0.50); Eosinophils % (auto) 1.1 %; Hematocrit (blood only) 28.6 % (37.0-47.0); Hemoglobin 9.4 g/dl (12.0-16.0); Immature Granulocytes # (auto) 0.02 K/uL (0.01-0.20); Immature Granulocytes % (auto) 0.3 %; Lymphocytes # (auto) 1.58 K/uL (1.20-3.40); Lymphocytes % (auto) 21.6 %; Mean Corpuscular Hemoglobin 30.7 pg (25.0-34.0); Mean Corpuscular Hgb Conc 32.9 g/dL (32.0-36.0); Mean Corpuscular Volume 93.5 fL (80.0-100.0); Mean Platelet Volume 10.5 fL (9.4-12.4); Monocytes # (auto) 0.77 K/uL (0.11-0.59); Monocytes % (auto) 10.5 %; Neutrophils # (auto) 4.83 K/uL (1.40-6.50); Neutrophils % (auto) 66.1 %; Platelet Count 202 K/uL (130-400); RDW Coefficient of Variation 12.7 % (11.5-14.5); RDW Standard Deviation 43.5 fL (36.4-46.3); Red Blood Count 3.06 M/uL (4.20-5.40); White Blood Count 7.31 K/ul (4.8-10.8)
[2024-10-22 08:56] LABS: Estimated Average Glucose 114 mg/dl; Hemoglobin A1C 5.6 % (4.5-5.6)
[2024-10-22] MEDS: CEROVITE ADV FORMULA TAB PO SCH (09:18)
[2024-10-22] MEDS: CALCIUM 600MG + VIT D 400 IU TAB PO SCH (09:18)
[2024-10-22] MEDS: PANTOprazole 40 MG TAB PO SCH (09:18)
--- NOTE | 2024-10-22 09:48 | Electrocardiogram Report ---
Test Reason : Blood Pressure : */* mmHG Vent. Rate : 67 BPM Atrial Rate : 67 BPM P-R Int : 156 ms QRS Dur : 90 ms QT Int : 440 ms P-R-T Axes : -23 6 31 degrees QTcB Int : 464 ms Normal sinus rhythm Inferior infarct , age undetermined Abnormal ECG When compared with ECG of 25-Feb-2022 19:02, Inferior infarct now present Confirmed by Sofia Olea ([place]) on 10/22/2024 9:48:17 AM Referred By: REFERRED SELF Confirmed By: Sofia Olea
[2024-10-22 12:11] LABS: Hematocrit (blood only) 28.7 % (37.0-47.0); Hemoglobin 9.7 g/dl (12.0-16.0)
[2024-10-22 12:49] LABS: Ferritin 21.8 ng/ml (8-388)
[2024-10-22 12:55] LABS: Folate (Folic Acid),Ser orPlas > 22.30 ng/ml (>5.38)
[2024-10-22 12:56] LABS: Vitamin B12 > 1500 pg/ml (180-914)
--- NOTE | 2024-10-22 13:08 | XRay Report ---
HISTORY: Fall with left shoulder fracture. TECHNIQUE: Left shoulder, 3 views. COMPARISON: None. FINDINGS: Glenohumeral alignment is maintained. Moderate glenohumeral osteoarthritis. Acromioclavicular joint alignment is maintained. Moderate acromioclavicular joint osteoarthritis. No acute fracture or dislocation. Benign calcified subcentimeter granuloma in the left lung apex. Mild left basilar atelectasis. IMPRESSION: * No acute osseous abnormality. 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 Electronically signed by Harjit Willett 10-22-2024 13:08 PM
--- NOTE | 2024-10-22 13:41 | CT Scan Report ---
HISTORY: Anemia status post fall. Evaluation for bleed. TECHNIQUE: Helical CT imaging of the abdomen and pelvis was performed . Images are presented in axial, sagittal, and coronal reformats. COMPARISON: CT of the abdomen pelvis with contrast dated 10/21/2024. FINDINGS: Lung Bases/Inferior Mediastinum: Mild atelectasis at the lung bases.Coronary artery calcifications are present. Moderate hiatal hernia. Liver: Cyst in the left hepatic lobe. Small cyst in the inferior right hepatic lobe. Gallbladder: Cholelithiasis with small stones along the dependent gallbladder. No wall thickening, distention, or pericholecystic fluid. No biliary ductal dilation. Spleen: Unremarkable Adrenals: Unremarkable Pancreas: Unremarkable Kidneys: Mild symmetric perinephric stranding is likely physiologic. No hydronephrosis. Contrast in the renal collecting systems from prior study. Stomach/Bowel: Moderate hiatal hernia. Small bowel loops are normal in caliber. Colonic diverticulosis. No evidence of acute diverticulitis. Lymph nodes: Unremarkable Vasculature: Mild to moderate atherosclerotic vascular disease. No abdominal aortic aneurysm. Pelvis: Contrast in an otherwise unremarkable urinary bladder. Uterus is absent. No free pelvic fluid. Soft Tissues: No evidence of rectus sheath hematoma. No iliopsoas hematoma. There is a large hematoma along the lateral right hip soft tissues involving the gluteus musculature measuring6.7 x 4.8 x 7.4 cm. There is overlying soft tissue edema and inflammation. Bones: No acute fracture or dislocation. 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 Grade 1 anterolisthesis of L4 and L5 is likely related to severe facet arthrosis. IMPRESSION: * 6.7 x 4.8 x 7.4 cm hematoma involving the lateral right hip soft tissues is centered in the gluteus musculature with overlying soft tissue edema. Short interval follow-up to resolution or further evaluation with contrast-enhanced MRI is recommended to exclude the possibility of an underlying mass. * Numerous additional chronic and/or incidental findings as detailed above. ACT 112: Positive. There are findings on this exam that require communication between the performing entity and the patient following Patient Test Result Information Act ([place] ACT 112) guidelines. Electronically signed by Harjit Willett 10-22-2024 13:41 PM
--- NOTE | 2024-10-22 13:45 | CT Scan Report ---
HISTORY: Right hip pain. Fall. TECHNIQUE: Helical CT imaging through the right hip was performedWithout the use of IV contrast. Images are presented in axial, sagittal, and coronal reformats. COMPARISON: CT of the abdomen pelvis without contrast acquired on the same day. FINDINGS: Moderate right hip osteoarthritis. The right femoral head and proximal femur appear intact. Moderate osteoarthritis of the pubic symphysis and sacroiliac joints.No acute fracture of the right hip, proximal femur, or pelvis. Previously described large hematoma involving the right gluteus musculature with overlying soft tissue edema is partially imaged. Colonic diverticulosis. The included intrapelvic soft tissues are otherwise unremarkable. IMPRESSION: * No acute fracture or dislocation. Moderate degenerative changes of the right hip and pelvis. * Previously described large hematoma centered in the right gluteus musculature with overlying soft tissue edema is only partially imaged. Please see separately reported CT the abdomen pelvis from the same day for full description. * Osseous demineralization may reflect osteopenia or osteoporosis. Electronically signed by Harjit Willett 10-22-2024 13:44 PM
--- NOTE | 2024-10-22 13:55 | CT Scan Report ---
HISTORY: Trauma and anemia. Evaluation for intracranial hemorrhage. TECHNIQUE: CT of the head without contrast. Images are presented in axial, sagittal, and coronal reformats. COMPARISON: Head CT dated 10/21/2024. FINDINGS: No evidence of intracranial hemorrhage, abnormal extra axial fluid collection, mass effect, or midline shift. Mild volume loss and presumed chronic microvascular ischemic changes.Ventricular caliber is appropriate. Fourth ventricle is midline. Basal cisterns are patent.Ramirez-white differentiation is maintained. Globes and orbits are unremarkable.Soft tissues about the skull base and scalp are unremarkable.Paranasal sinuses and mastoid air cells are clear. No calvarial fracture. IMPRESSION: No acute intracranial findings. Electronically signed by Harjit Willett 10-22-2024 13:55 PM
--- NOTE | 2024-10-22 14:24 | CT Scan Report ---
EXAMINATION: CT femur right without contrast CLINICAL HISTORY: Hip pain, fall, rule out fracture PRIORS: None TECHNIQUE: Contiguous axial images were obtained through the right hip without the use of intravenous contrast. Sagittal and coronal reformations are supplied. Bone windows are supplied exclusively. FINDINGS: Moderate to high-grade osseous demineralization is noted. 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 Allowing for this, no acute displaced fracture or dislocation. Mild soft tissue calcification noted surrounding the femoral head. Moderate degenerative change of the hip noted. Mild soft tissue calcification also noted adjacent to the right ischial tuberosity. Soft tissue windows are not supplied. Allowing for this, no large hip joint effusion. No soft tissue hematoma. Mild soft tissue swelling noted in the subcutaneous tissues adjacent to the greater tuberosity. Muscle bulk within normal limits. No radiopaque foreign body. Alignment maintained. IMPRESSION: 1. Moderate degenerative change and osseous demineralization with no CT evidence of an acute displaced fracture or dislocation. If pain persists, MRI could be considered. 2. Moderate degenerative change of the right hip. Electronically signed by Sosa Dunbar 10-22-2024 2:23 PM
--- NOTE | 2024-10-22 15:02 | Hospitalist Progress Note ---
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 Short interval follow-up to resolution or further evaluation with contrast-enhanced MRI is recommended to exclude the possibility of an underlying mass. -- will consult Ortho -- monitor H&H anemia panel - repeat CT head, abd/pelvis, hip, Xray shoulder otherwise unremarkable -- PT/OT eval Hypotension -- likely from blood loss secondary to hematoma -- IV fluids PT OT eval DVT prophylaxis. SCDs Re: Recent fall/head trauma DNR plan of care discussed with patient and son Kevin in detail and at length all questions answered they are understanding, agreeable, comfortable with the plan of care Admission and Anticipated Discharge Date Admission Date: October 22, 2024 Subjective ff up for fall, hypotension, etc seen resting in bedside chair, comfortable in good spirits patient's son Kevin at bedside visiting states she is having some left sided headache, no visual changes, no nausea/vomiting reports R hip- lateral and posterior- pain, worse with standing also has some L shoulder discomfort no other symptoms Review of Systems Review of Systems: all noted and negative except for above Physical Exam Physical Exam: General- oriented x 3, not in distress, speaks in sentences with no effort or accessory muscle use Head- small contusion- posterolateral aspect Eyes- anicteric Neck- no JVD Lungs- clear breath sounds bilaterally, no crackles/wheezing Heart- normal rate, regular rhythm; no murmurs Abdomen- normal bowel sounds, nondistended, soft, notenderness Extremities- no pretibial edema, no calf tenderness R hip: mild tenderness Neuro- alert, oriented x 3; no gross focal neurologic deficits Skin- warm & dry Results & Data Results & Data Vital Signs (Past 12 Hours) Vital Signs Temp Pulse Pulse Resp BP Pulse Ox O2 Del Method 10/22/24 14:50 37.1 C 71 18 106/58 L 97 Room Air 10/22/24 07:11 36.6 C 66 18 90/54 L 95 Room Air 10/22/24 07:00 68 all noted and reviewed including below
[2024-10-22] MEDS: SODIUM CHLORIDE 0.9% 1,000 ML IV SCH (16:04)
[2024-10-22 18:24] LABS: Hemoglobin 9.5 g/dl (12.0-16.0)
[2024-10-22] MEDS: SIMVASTATIN 40 MG TAB PO SCH (20:56)
[2024-10-23 05:34] LABS: Basophils # (auto) 0.04 K/uL (0.00-0.20); Basophils % (auto) 0.5 %; Eosinophils # (auto) 0.16 K/uL (0.00-0.50); Eosinophils % (auto) 2.1 %; Hematocrit (blood only) 26.4 % (37.0-47.0); Hemoglobin 8.7 g/dl (12.0-16.0); Immature Granulocytes # (auto) 0.02 K/uL (0.01-0.20); Immature Granulocytes % (auto) 0.3 %; Lymphocytes # (auto) 2.04 K/uL (1.20-3.40); Lymphocytes % (auto) 26.3 %; Mean Platelet Volume 10.1 fL (9.4-12.4); Monocytes # (auto) 0.77 K/uL (0.11-0.59); Monocytes % (auto) 9.9 %; Neutrophils # (auto) 4.74 K/uL (1.40-6.50); Neutrophils % (auto) 60.9 %; Platelet Count 179 K/uL (130-400); RDW Coefficient of Variation 13.1 % (11.5-14.5); RDW Standard Deviation 44.8 fL (36.4-46.3); Red Blood Count 2.81 M/uL (4.20-5.40); White Blood Count 7.77 K/ul (4.8-10.8)
[2024-10-23 05:49] LABS: BUN Creatinine Ratio 17.6 (10-20); Calcium 7.9 mg/dl (8.6-10.3); Creatinine Clr Calc Pharmacy 48.9 ml/min
[2024-10-23 07:04] VITALS: RESP 18
--- NOTE | 2024-10-23 10:27 | Orthopedic Consultation ---
Date of Consultation October 23, 2024 Assessment & Plan (1) Hematoma: 84-year-old female with a right large gluteal hematoma status post traumatic fall on 10/21/2024 Findings, plan and imaging discussed with the patient as well as Dr. Brooks. Nonsurgical management is recommended including pain control with Tylenol, ice/heat, rest. Can ice for first 3 days then switch to warm compresses to spiral winding machine helper in absorption of hematoma. Discussed with her this can take some time to fully resolve. She right now is sitting comfortably but we discussed utilizing a pillow behind her back or underneath her bottom if she has any issues sitting in a chair or laying in bed. She can do Tylenol for pain control but would refrain against any anti-inflammatories or aspirin due to bleeding risk. She is not currently on any blood thinners. She can be weightbearing as tolerated, motion as tolerated. Would use a walker to ambulate until fully comfortable without. A compressive wrap would be helpful but not feasible in her situation where the hematoma is. Would continue to monitor Hgb. She can follow-up in our office in 4 weeks as she needs. All of her questions and concerns were addressed. She expressed verbal understanding and agreement with this plan. Will sign off, please [place] text with any questions or concerns. Supervising Physician Co-Signing Physician Notes I reviewed the patient's medical record and imaging studies, formulated the plan and performed the substantive portion of the visit. History of Present Illness Reason for Consultation: Right gluteal hematoma History of Present Illness Arlene is an 84-year-old female who was admitted on Wednesday after she fell down 8 sets of stairs. She landed on her right side. She mainly is having pain in the right hip area. She says this has improved. She denies having any hip or leg issues on the right side prior to the fall. 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 She says most of her pain is over the back gluteal side. She did hit her head but did not lose consciousness. She has been able to bear weight and walk and move around. After she fell she was able to get up and walk. She has both of her knees replaced in 2008 by a surgeon in [facility]. She is not complaining of any ankle or knee pain. She has some soreness over her left deltoid area. She has been given ice and Tylenol while she has been here in the hospital which she says has helped. She is not on any blood thinners. Allergies Allergy/AdvReac Type Severity Reaction Status Date / Time No Known Allergies Allergy Unverified 10/21/24 18:43 Home Medications Medication Instructions Recorded Confirmed Type calcium 600 mg (as 1 tab PO DAILY 02/25/22 10/21/24 History carbonate)-vitamin D3 5 mcg (200 unit) tablet (Calcium 600 + D(3)) lysine HCl 1,000 mg tablet 1,000 mg PO Q2D 02/25/22 10/21/24 History multivitamin with minerals 1 tab PO DAILY 02/25/22 10/21/24 History (Hair,Skin and Nails tablet) pantoprazole 40 mg tablet,delayed 40 mg PO QAM 02/25/22 10/21/24 History release simvastatin 40 mg tablet 40 mg PO QPM 02/25/22 10/21/24 History vit C 250 mg-vit E 90 mg-zinc 40 1 tab PO BID 02/25/22 10/21/24 History mg-copper 1 he-[id number] capsule (PreserVision AREDS-2) gabapentin 100 mg capsule 100 mg PO HS PRN Pain/Sleep 10/21/24 10/21/24 History tramadol 50 mg tablet 25 mg (1/2 x 50 mg) PO Q6H PRN 10/24/24 Rx severe pain #10 tabs Patient History Social History Smoking Status: Never smoker Hx Alcohol Use: No Hx Substance Use: No Preferred Language: Gambian Communication Ability: Effective Atomizer Assembler Required: No Beliefs That Will Affect Care: None Current Living Situation: Family Current Living Situation Comment: with son and [id number] Other Information That Helps Us Care for You: No Feels Safe at Home: Yes Safety Concerns: Feels Safe At This Time Assistive Devices: Cane Assistive Devices Comment: many various visual aids Physical Exam Physical Exam: General: Patient is sitting comfortably in a chair in no acute distress Right lower extremity: Patient has large upper gluteal hematoma present. This is tender to the touch. There is purple/blue discoloration from the bruising. There is no breaks in the skin. Patient has no tenderness over her thigh or her knee. She is able to freely wiggle her toes and pump her ankles in dorsiflexion and plantarflexion. She can do this against resistance and is 5 out of 5 strength with resisted dorsiflexion/plantarflexion as well as resisted knee flexion/extension without any pain. She has no tenderness over her knee. Previous surgical scars present. There is no breaks in the skin. There is no effusion. She can fully extend and flex her knee without any issues. She can do a straight leg raise. She is able to tolerate passive internal and external rotation. She only has some slight discomfort with full external rotation noted over her glutes. She has no groin pain. She can tolerate passive full abduction and abduction with little discomfort. Results & Data Vital Signs (Past 12 Hours) Vital Signs Temp Pulse Pulse Resp BP BP Pulse Ox 10/23/24 07:04 36.8 C 79 18 108/64 97 10/23/24 07:00 72 10/23/24 03:46 36.7 C 74 17 111/54 L 98 10/22/24 22:43 37.2 C 89 17 117/67 99 O2 Del Method 10/23/24 07:04 Room Air 10/23/24 07:00 10/23/24 03:46 Room Air 10/22/24 22:43 Room Air Laboratory Results 10/23/24 10/22/24 10/22/24 Range/Units 05:18 17:59 11:59 WBC 7.77 (4.8-10.8) K/ul RBC 2.81 L (4.20-5.40) M/uL Hgb 8.7 L 9.5 L 9.7 L (12.0-16.0) g/dl Hct 26.4 L 29.0 L 28.7 L (37.0-47.0) % MCV 94.0 (80.0-100.0) fL MCH 31.0 (25.0-34.0) pg MCHC 33.0 (32.0-36.0) g/dL RDW Std Deviation 44.8 (36.4-46.3) fL RDW Coeff of Brent 13.1 (11.5-14.5) % Plt Count 179 (130-400) K/uL MPV 10.1 (9.4-12.4) fL Immature Gran % (Auto) 0.3 % Neut % (Auto) 60.9 % Lymph % (Auto) 26.3 % [place] % (Auto) 9.9 % Eos % (Auto) 2.1 % Baso % (Auto) 0.5 % Neut # (Auto) 4.74 (1.40-6.50) K/uL Lymph # (Auto) 2.04 (1.20-3.40) K/uL [place] # (Auto) 0.77 H (0.11-0.59) K/uL Eos # (Auto) 0.16 (0.00-0.50) K/uL Baso # (Auto) 0.04 (0.00-0.20) K/uL Immature Gran # (Auto) 0.02 (0.01-0.20) K/uL Sodium 138 (136-145) mmol/L Potassium 4.0 (3.5-5.1) mmol/L Chloride 111 H (98-107) mmol/L Carbon Dioxide 24 (21-32) mmol/L Anion Gap 3 (3-11) BUN 13 (6-23) mg/dl Creatinine 0.74 (0.6-1.2) mg/dl Est Cr Clr Drug Dosing 48.9 ml/min eGFR 78.74 BUN/Creatinine Ratio 17.6 (10-20) Glucose 102 H (70-99(Fasting)) mg/dl Calcium 7.9 L (8.6-10.3) mg/dl Iron 70 (35-150) mcg/dl Transferrin 193 L (200-360) mg/dl Ferritin 21.8 (8-388) ng/ml Vitamin B12 > 1500 H (180-914) pg/ml Folate > 22.30 (>5.38) ng/ml Diagnostic Findings Hip CT, femur CT, abdomen/pelvis CT, femur x-ray, hip/pelvics x-ray were reviewed that were done 10/21/2024-10/22/2024. No signs of any acute fractures. Hardware is well-maintained. Demineralized bone reflecting osteopenia or osteoporosis is identified. Patient has mild to moderate degenerative changes of the right hip. She has some mild calcifications near the hamstring tendons. No effusion. Large hematoma along the lateral right hip soft tissue involving t he gluteus muscles measuring by radiology 6.7 x 4.8 x 7.4 cm. 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 Severe facet arthrosis.
[2024-10-23 12:59] LABS: Hematocrit (blood only) 27.6 % (37.0-47.0); Hemoglobin 9.2 g/dl (12.0-16.0)
[2024-10-23] MEDS ORDERED: ONDANSETRON INJ 2 MG/ML 2 ML VIAL IV PRN (14:42)
--- NOTE | 2024-10-23 14:44 | Hospitalist Progress Note ---
Date of Service October 23, 2024 Assessment & Plan (1) Status post fall: (2) Hypotension: Plan: Transient hypotension Ambulatory dysfunction, recurrent falls as per records Depression, without suicidality, patient interested in seeking inpatient psychiatry evaluation for symptoms as outpatient booking difficult as per patient discussion with PCP legal blindness, history of macular degeneration s/p Mechanical Fall Gluteal Hematoma Acute blood loss anemia -- 6.7 x 4.8 x 7.4 cm hematoma involving the lateral right hip soft tissues is centered in the gluteus musculature with overlying soft tissue edema. Short interval follow-up to resolution or further evaluation with contrast-enhanced MRI is recommended to exclude the possibility of an underlying mass. -- will consult Ortho: no surgical intervention -- monitor H&H: stable at ~9 anemia panel: ok - repeat CT head, abd/pelvis, hip, Xray shoulder otherwise unremarkable -- PT: recommend return home OT: pending Hypotension -- likely from blood loss secondary to hematoma, fentanyl -- no recurrence, IV fluids PT OT eval DVT prophylaxis. SCDs Re: Recent fall/head trauma DNR plan of care discussed with patien in detail and at length all questions answered she is understanding, agreeable, comfortable with the plan of care Admission and Anticipated Discharge Date Admission Date: October 22, 2024 Subjective ff up for fall, gluteal hematoma, episode of hypotension, etc seen resting in bed, comfortable sitting up, having breakfast states she feels ok overall still having R hip/gluteal pain but improving no dizziness while sitting up has not stood up and walked yet no headache, dizziness no other symptoms Review of Systems Review of Systems: all noted and negative except for above Physical Exam Physical Exam: General- oriented x 3, not in distress, speaks in sentences with no effort or accessory muscle use Eyes- anicteric Neck- no JVD Lungs- clear breath sounds bilaterally, no rales/wheezes Heart- normal rate, regular rhythm; no murmurs Abdomen- normal bowel sounds, nondistended, soft, nontender Extremities- no pretibial edema, no calf tenderness Neuro- alert, oriented x 3; no gross focal neurologic deficits Skin- warm & dry Results & Data Results & Data Vital Signs (Past 12 Hours) Vital Signs Temp Pulse Pulse Resp BP BP Pulse Ox 10/23/24 07:04 36.8 C 79 18 108/64 97 10/23/24 07:00 72 10/23/24 03:46 36.7 C 74 17 111/54 L 98 O2 Del Method 10/23/24 07:04 Room Air 10/23/24 07:00 10/23/24 03:46 Room Air all noted and reviewed including below
[2024-10-23] MEDS: ACETAMINOPHEN 500 MG TAB PO SCH (17:14)
[2024-10-24 03:34] VITALS: TEMP 97.7; O2SAT 97
[2024-10-24 07:07] LABS: Basophils # (auto) 0.03 K/uL (0.00-0.20); Basophils % (auto) 0.4 %; Eosinophils # (auto) 0.15 K/uL (0.00-0.50); Hematocrit (blood only) 27.7 % (37.0-47.0); Hemoglobin 9.4 g/dl (12.0-16.0); Immature Granulocytes # (auto) 0.03 K/uL (0.01-0.20); Immature Granulocytes % (auto) 0.4 %; Lymphocytes # (auto) 1.33 K/uL (1.20-3.40); Lymphocytes % (auto) 17.6 %; Mean Corpuscular Hemoglobin 31.5 pg (25.0-34.0); Mean Corpuscular Hgb Conc 33.9 g/dL (32.0-36.0); Mean Platelet Volume 10.5 fL (9.4-12.4); Monocytes # (auto) 0.71 K/uL (0.11-0.59); Monocytes % (auto) 9.4 %; Neutrophils # (auto) 5.32 K/uL (1.40-6.50); Neutrophils % (auto) 70.2 %; Platelet Count 216 K/uL (130-400); RDW Coefficient of Variation 13.1 % (11.5-14.5); RDW Standard Deviation 44.2 fL (36.4-46.3); Red Blood Count 2.98 M/uL (4.20-5.40); White Blood Count 7.57 K/ul (4.8-10.8)
--- NOTE | 2024-10-24 07:45 | Discharge Summary ---
Discharge Summary Date of Service October 24, 2024 delayed entry date of service noted above Principal Dx & Hospital Course #1 = Principal Diagnosis (1) Status post fall: (2) Hypotension: Transient hypotension Ambulatory dysfunction, recurrent falls as per records Depression, without suicidality, patient interested in seeking inpatient psychiatry evaluation for symptoms as outpatient booking difficult as per patient discussion with PCP legal blindness, history of macular degeneration s/p Mechanical Fall Gluteal Hematoma Acute blood loss anemia -- 6.7 x 4.8 x 7.4 cm hematoma involving the lateral right hip soft tissues is centered in the gluteus musculature with overlying soft tissue edema. Short interval follow-up to resolution or further evaluation with contrast-enhanced MRI is recommended to exclude the possibility of an underlying mass. 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 Severe disc space narrowing at several levels. Grade 1 anterolisthesis of L4. Coronary artery calcifications are present. already on Statin refer to Cardio if ASA could be beneficial -- CT head: Moderate atrophy and small vessel ischemic white matter disease. -- Femur CT: Moderate degenerative change and osseous demineralization with no CT evidence of an acute displaced fracture or dislocation. If pain persists, MRI could be considered. Further work up, management, and ff up as outpatient plan of care discussed with patient all questions answered she is understanding, agreeable, comfortable with the plan of care Notes For Next Care Provider Medication Changes From Visit Tramadol PRN Tylenol PRN Admission HPI Per Admitting Provider History obtained from patient and records. Medical history significant for skin cancer status post surgery, neuropathy, legal blindness, mood disorder. Patient fell down a flight of stairs while carrying a bag around noontime today. Head trauma without LOC. Achy right-sided hip pain. Denies LOC, chest pain, SOB. Right forearm tear resulting from fall. Patient brought to ER for evaluation. SBP 80s and dizziness on ambulation at the ER. Medical History as above Surgical History : Hiatal hernia repair, knee surgeries, REBECCA/BSO, appendectomy Family History : Heart disease, alcoholism, COPD, MDS, AAA, suicide Personal/Social history : Non-smoker, occasional EtOH intake, retired [employer] employee Admission Exam Per Admitting Provider GENERAL: Comfortable, pleasant, no respiratory distress SKIN: Normal color, warm HEENT: [place] palpebral conjunctivae, no ptosis, dry buccal mucosa NECK : Supple, no tenderness CHEST : CTA, no tenderness HEART : RRR, no obvious murmurs ABDOMEN: Some distention, nontender EXTREMITIES : Bandage over right forearm, no LE swelling/tenderness, palpable pulses, no other conspicuous deformities noted NEUROLOGIC : Coherent, no facial asymmetry, no other gross focality Discharge Exam General- oriented x 3, not in distress, speaks in sentences with no effort or accessory muscle use Eyes- anicteric Neck- no JVD Lungs- clear breath sounds bilaterally, no rales/wheezes Heart- normal rate, regular rhythm; no murmurs Abdomen- normal bowel sounds, nondistended, soft, nontender Extremities- no pretibial edema, no calf tenderness Neuro- alert, oriented x 3; legally blind, otherwise no gross focal neurologic deficits Skin- warm & dry Updated Medication List Medication Instructions Recorded Confirmed Type calcium 600 mg (as 1 tab PO DAILY 02/25/22 10/21/24 History carbonate)-vitamin D3 5 mcg (200 unit) tablet (Calcium 600 + D(3)) lysine HCl 1,000 mg tablet 1,000 mg PO Q2D 02/25/22 10/21/24 History multivitamin with minerals 1 tab PO DAILY 02/25/22 10/21/24 History (Hair,Skin and Nails tablet) pantoprazole 40 mg tablet,delayed 40 mg PO QAM 02/25/22 10/21/24 History release simvastatin 40 mg tablet 40 mg PO QPM 02/25/22 10/21/24 History vit C 250 mg-vit E 90 mg-zinc 40 1 tab PO BID 02/25/22 10/21/24 History mg-copper 1 [id number] capsule (PreserVision AREDS-2) gabapentin 100 mg capsule 100 mg PO HS PRN Pain/Sleep 10/21/24 10/21/24 History tramadol 50 mg tablet 25 mg (1/2 x 50 mg) PO Q6H PRN 10/24/24 Rx severe pain #10 tabs Hospital Stay Data Consultations 10/21/24 22:06 ED Decision to Admit Stat 10/22/24 07:15 Consult Behavioral Health Liaison Routine 10/23/24 07:56 Consult Orthopedic Surgery Routine Diagnostic Imagining Performed Laboratory Results WBC 7.57 K/ul (4.8-10.8) 10/24/24 06:47 RBC 2.98 M/uL (4.20-5.40) L 10/24/24 06:47 Hgb 9.4 g/dl (12.0-16.0) L 10/24/24 06:47 POC Hgb 15.3 g/dl (12.0-16.0) 10/21/24 15:47 Hct 27.7 % (37.0-47.0) L 10/24/24 06:47 POC Hct 45 % (37-47) 10/21/24 15:47 MCV 93.0 fL (80.0-100.0) 10/24/24 06:47 MCH 31.5 pg (25.0-34.0) 10/24/24 06:47 MCHC 33.9 g/dL (32.0-36.0) 10/24/24 06:47 RDW Std Deviation 44.2 fL (36.4-46.3) 10/24/24 06:47 RDW Coeff of Brent 13.1 % (11.5-14.5) 10/24/24 06:47 Plt Count 216 K/uL (130-400) 10/24/24 06:47 MPV 10.5 fL (9.4-12.4) 10/24/24 06:47 Immature Gran % (Auto) 0.4 % 10/24/24 06:47 Neut % (Auto) 70.2 % 10/24/24 06:47 Lymph % (Auto) 17.6 % 10/24/24 06:47 Newberry % (Auto) 9.4 % 10/24/24 06:47 Eos % (Auto) 2.0 % 10/24/24 06:47 Baso % (Auto) 0.4 % 10/24/24 06:47 Neut # (Auto) 5.32 K/uL (1.40-6.50) 10/24/24 06:47 Lymph # (Auto) 1.33 K/uL (1.20-3.40) 10/24/24 06:47 Newberry # (Auto) 0.71 K/uL (0.11-0.59) H 10/24/24 06:47 Eos # (Auto) 0.15 K/uL (0.00-0.50) 10/24/24 06:47 Baso # (Auto) 0.03 K/uL (0.00-0.20) 10/24/24 06:47 Immature Gran # (Auto) 0.03 K/uL (0.01-0.20) 10/24/24 06:47 PT 10.5 Seconds (9.0-12.0) 10/21/24 15:40 INR 1.0 (0.9-1.1) 10/21/24 15:40 APTT 27 Seconds (21-31) 10/21/24 15:40 PTT Ratio 1.0 10/21/24 15:40 POC Sodium 141 mmol/L (135-144) 10/21/24 15:47 Sodium 138 mmol/L (136-145) 10/23/24 05:18 POC Potassium 3.7 mmol/L (3.3-5.0) 10/21/24 15:47 Potassium 4.0 mmol/L (3.5-5.1) 10/23/24 05:18 POC Chloride 105 mmol/L (101-112) 10/21/24 15:47 Chloride 111 mmol/L (98-107) H 10/23/24 05:18 Carbon Dioxide 24 mmol/L (21-32) 10/23/24 05:18 POC Total CO2 22 mmol/L (24-31) L 10/21/24 15:47 Anion Gap 3 (3-11) 10/23/24 05:18 POC Anion Gap 18.0 mmol/L (16-25) 10/21/24 15:47 POC BUN 17 mg/dl (7-18) 10/21/24 15:47 BUN 13 mg/dl (6-23) 10/23/24 05:18 Creatinine 0.74 mg/dl (0.6-1.2) 10/23/24 05:18 POC Creatinine 1.1 mg/dl (0.6-1.3) 10/21/24 15:47 Est Cr Clr Drug Dosing 48.9 ml/min 10/23/24 05:18 eGFR 78.74 10/23/24 05:18 BUN/Creatinine Ratio 17.6 (10-20) 10/23/24 05:18 Glucose 102 mg/dl (70-99(Fasting)) H 10/23/24 05:18 POC Glucose 121 mg/dl (70-99) H 10/21/24 19:02 POC Glucose (other) 122 mg/dl (70-99) H 10/21/24 15:47 Estimat Average Glucose 114 mg/dl 10/22/24 06:17 Hemoglobin A1c 5.6 % (4.5-5.6) 10/22/24 06:17 Calcium 7.9 mg/dl (8.6-10.3) L 10/23/24 05:18 POC Ioniz Calcium Sam 1.21 mmol/l (1.12-1.32) 10/21/24 15:47 Iron 70 mcg/dl (35-150) 10/22/24 11:59 Transferrin 193 mg/dl (200-360) L 10/22/24 11:59 Ferritin 21.8 ng/ml (8-388) 10/22/24 11:59 Total Bilirubin 0.6 mg/dl (0.2-1.0) 10/21/24 15:40 AST 22 U/L (13-39) 10/21/24 15:40 ALT 11 U/L (7-52) 10/21/24 15:40 Alkaline Phosphatase 82 U/L (34-104) 10/21/24 15:40 Total Creatine Kinase 158 U/L (26-192) 10/21/24 15:40 Total Protein 6.7 gm/dl (6.0-8.3) 10/21/24 15:40 Albumin 4.0 gm/dl (3.4-5.0) 10/21/24 15:40 Globulin 2.7 gm/dl (2.5-4.0) 10/21/24 15:40 Albumin/Globulin Ratio 1.5 (0.9-2) 10/21/24 15:40 Vitamin B12 > 1500 pg/ml (180-914) H 10/22/24 11:59 Folate > 22.30 ng/ml (>5.38) 10/22/24 11:[address] 10/21/24 15:38 CT cervical spine without IV contrast History: Comparison: None Technique: Using multidetector thin collimation helical acquisition technique, axial, coronal and sagittal CT images through the cervical spine were obtained without intravenous contrast. Dose reduction techniques were achieved by using automatic exposure control and/or adjustment of mA and/or kV according to patient size and/or use of iterative reconstruction technique. Findings: [id number] articulation appeared normal. Odontoid process is intact. No acute compression deformities. Posterior elements are intact. No acute process. Prevertebral soft tissues are normal. Airways are patent. Degenerative changes:[id number] articulation appeared normal. Odontoid process is intact. No acute compression deformities. Posterior elements are intact. No acute process. Prevertebral soft tissues are normal. Airways are patent. Degenerative changes: Facet arthropathy. Left foraminal narrowing at C3-C4. Right foraminal narrowing at C4-C5. Bilateral foraminal narrowing C5-C6 and C6-C7. Impression Degenerative changes Electronically signed by Jordyn Aguiar 10-21-2024 4:[address] 10/21/24 15:38 Technique: Axial images were obtained along with coronal and sagittal reconstruction. Patient was injected with contrast intravenously, the amount and type is recorded in the EMR DLP in mGycm reported in the EMR record. Dose lowering technique: Automated exposure control with adjustment of the MA and/or KV, use of iterative reconstruction. Data included in the medical record Findings: No mediastinal hematoma. Vascular structures are intact. No cardiomegaly or pericardial effusion. Lung reynolds are clear. No pneumothorax or pleural effusion. Central airways are patent. No definite rib fracture identified. No sternal fracture or vertebral compression deformity. Impression No acute process. Electronically signed by Jordyn Aguiar 10-21-2024 4:57 PM Chest X-Ray 10/21/24 15:38 Chest radiograph, one view History: Chest pain Comparison: Findings: Single AP view of the chest performed. No focal consolidation or pleural effusion. No pneumothorax. The cardiomediastinal silhouette is within normal limits. Normal pulmonary vascularity. No evidence for lymphadenopathy. No visualized bony or soft tissue abnormality. Impression: Normal chest radiograph Electronically signed by Jordyn Aguiar 10-21-2024 4:02 PM Hip/Pelvis X-Ray 10/21/24 15:38 Extremity Radiograph : History: Pain Comparison None. Findings: 3 views No fracture or malalignment. Mild narrowing of the right hip joint. Moderate narrowing of the left hip joint. There is no soft tissue swelling. No visualized foreign bodies. Impression Normal radiograph. Electronically signed by Jordyn Aguiar 10-21-2024 4:04 PM Femur X-Ray 10/21/24 16:02 4 views of the right femur were obtained. Evaluation right hip was limited by technique. No definite fracture or dislocation. Narrowing of the hip joint space. Right sided knee prosthesis. No malalignment or complicating process. Impression No acute process. Electronically signed by Jordyn Aguiar 10-21-2024 5:10 PM Abdomen/Pelvis CT 10/22/24 12:09 HISTORY: Anemia status post fall. Evaluation for bleed. TECHNIQUE: Helical CT imaging of the abdomen and pelvis was performed . Images are presented in axial, sagittal, and coronal reformats. COMPARISON: CT of the abdomen pelvis with contrast dated 10/21/2024. FINDINGS: Lung Bases/Inferior Mediastinum: Mild atelectasis at the lung bases.Coronary artery calcifications are present. Moderate hiatal hernia. Liver: Cyst in the left hepatic lobe. Small cyst in the inferior right hepatic lobe. Gallbladder: Cholelithiasis with small stones along the dependent gallbladder. No wall thickening, distention, or pericholecystic fluid. No biliary ductal dilation. Spleen: Unremarkable Adrenals: Unremarkable Pancreas: Unremarkable Kidneys: Mild symmetric perinephric stranding is likely physiologic. No hydronephrosis. Contrast in the renal collecting systems from prior study. Stomach/Bowel: Moderate hiatal hernia. Small bowel loops are normal in caliber. Colonic diverticulosis. No evidence of acute diverticulitis. Lymph nodes: Unremarkable Vasculature: Mild to moderate atherosclerotic vascular disease. No abdominal aortic aneurysm. Pelvis: Contrast in an otherwise unremarkable urinary bladder. Uterus is absent. No free pelvic fluid. Soft Tissues: No evidence of rectus sheath hematoma. No iliopsoas hematoma. There is a large hematoma along the lateral right hip soft tissues involving the gluteus musculature measuring6.7 x 4.8 x 7.4 cm. There is overlying soft tissue edema and inflammation. Bones: No acute fracture or dislocation. 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 Grade 1 anterolisthesis of L4 and L5 is likely related to severe facet arthrosis. IMPRESSION: * 6.7 x 4.8 x 7.4 cm hematoma involving the lateral right hip soft tissues is centered in the gluteus musculature with overlying soft tissue edema. Short interval follow-up to resolution or further evaluation with contrast-enhanced MRI is recommended to exclude the possibility of an underlying mass. * Numerous additional chronic and/or incidental findings as detailed above. ACT 112: Positive. There are findings on this exam that require communication between the performing entity and the patient following Patient Test Result Information Act ([place] ACT 112) guidelines. Electronically signed by Harjit Willett 10-22-2024 13:[address] 10/22/24 12:09 EXAMINATION: CT femur right without contrast CLINICAL HISTORY: Hip pain, fall, rule out fracture PRIORS: None TECHNIQUE: Contiguous axial images were obtained through the right hip without the use of intravenous contrast. Sagittal and coronal reformations are supplied. Bone windows are supplied exclusively. FINDINGS: Moderate to high-grade osseous demineralization is noted. 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 Allowing for this, no acute displaced fracture or dislocation. Mild soft tissue calcification noted surrounding the femoral head. Moderate degenerative change of the hip noted. Mild soft tissue calcification also noted adjacent to the right ischial tuberosity. Soft tissue windows are not supplied. Allowing for this, no large hip joint effusion. No soft tissue hematoma. Mild soft tissue swelling noted in the subcutaneous tissues adjacent to the greater tuberosity. Muscle bulk within normal limits. No radiopaque foreign body. Alignment maintained. IMPRESSION: 1. Moderate degenerative change and osseous demineralization with no CT evidence of an acute displaced fracture or dislocation. If pain persists, MRI could be considered. 2. Moderate degenerative change of the right hip. Electronically signed by Sosa Dunbar 10-22-2024 2:[address] 10/22/24 12:09 HISTORY: Trauma and anemia. Evaluation for intracranial hemorrhage. TECHNIQUE: CT of the head without contrast. Images are presented in axial, sagittal, and coronal reformats. COMPARISON: Head CT dated 10/21/2024. FINDINGS: No evidence of intracranial hemorrhage, abnormal extra axial fluid collection, mass effect, or midline shift. Mild volume loss and presumed chronic microvascular ischemic changes.Ventricular caliber is appropriate. Fourth ventricle is midline. Basal cisterns are patent.Ramirez-white differentiation is maintained. Globes and orbits are unremarkable.Soft tissues about the skull base and scalp are unremarkable.Paranasal sinuses and mastoid air cells are clear. No calvarial fracture. IMPRESSION: No acute intracranial findings. Electronically signed by Harjit Willett 10-22-2024 13:[address] 10/22/24 12:09 HISTORY: Right hip pain. Fall. TECHNIQUE: Helical CT imaging through the right hip was performedWithout the use of IV contrast. Images are presented in axial, sagittal, and coronal reformats. COMPARISON: CT of the abdomen pelvis without contrast acquired on the same day. FINDINGS: Moderate right hip osteoarthritis. The right femoral head and proximal femur appear intact. Moderate osteoarthritis of the pubic symphysis and sacroiliac joints.No acute fracture of the right hip, proximal femur, or pelvis. Previously described large hematoma involving the right gluteus musculature with overlying soft tissue edema is partially imaged. Colonic diverticulosis. The included intrapelvic soft tissues are otherwise unremarkable. IMPRESSION: * No acute fracture or dislocation. Moderate degenerative changes of the right hip and pelvis. * Previously described large hematoma centered in the right gluteus musculature with overlying soft tissue edema is only partially imaged. Please see separately reported CT the abdomen pelvis from the same day for full description. * Osseous demineralization may reflect osteopenia or osteoporosis. Electronically signed by Harjit Willett 10-22-2024 13:44 PM Shoulder X-Ray 10/22/24 12:09 HISTORY: Fall with left shoulder fracture. TECHNIQUE: Left shoulder, 3 views. COMPARISON: None. FINDINGS: Glenohumeral alignment is maintained. Moderate glenohumeral osteoarthritis. Acromioclavicular joint alignment is maintained. Moderate acromioclavicular joint osteoarthritis. No acute fracture or dislocation. Benign calcified subcentimeter granuloma in the left lung apex. Mild left basilar atelectasis. IMPRESSION: * No acute osseous abnormality. 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 Electronically signed by Harjit Willett 10-22-2024 13:08 PM 10/21/24 15:38 CT abd pelvis IV con only Stat CT cervical spine wo con Stat CT chest diagnostic w con Stat CT head/brain wo con Stat 10/22/24 12:09 CT Abdomen and Pelvis [CT abd pelvis wo con] Urgent CT femur RT wo con Routine CT head/brain wo con Urgent CT hip RT wo con Routine Pending Results Patient Have Any Pending Studies at Discharge: No Discharge Instructions Given to Patient (Per Discharging Provider) You may take Tylenol 1000 mg every 8 hours as needed for pain. Do not take more than 3000 mg of Tylenol in 24 hours. Please apply Ice pack on your right hip/buttock area for 2 days. Then, you may apply warm compress for pain. Do not take medications under the class of NSAIDs including aspirin, ibuprofen, naproxen, etc. as this can worsen your hematoma/increase your bleeding risk. Always ambulate carefully. Please follow orthopedic recommendations per below. PLEASE CALL YOUR PRIMARY CARE PHYSICIAN OR RETURN TO THE ER IF WITH WORSENING OF SYMPTOMS, INCLUDING Right hip/buttock pain, headache, dizziness, lightheadedness, etc. FOLLOW UP WITH PRIMARY CARE PHYSICIAN in 2 weeks. Follow-up with orthopedic clinic care of FELA Burrell as needed. Contact information outlined above. Total Time Total Time Spent Total Time Spent (In Minutes): 40 minutes
[2024-10-24 07:49] VITALS: BP 122/68; PULSE 71
== END 2024-10-24 08:01 | disposition home or self-care (01) | DRG 605 ==
LOC: ED 15:30 → 2W 15:30 → 2N 10-23 09:43